=== PATIENT | male | born 1955 | race Caucasian/White ===

== ENCOUNTER → 2023-08-14 10:28 | Outpatient (REF) | payer MEDICARE, SELFPAY | LOC: RAD 10:28 | PROVIDERS: ATTENDING PHYSICIAN Family Medicine | DX: I82.621 Acute embolism and thrombosis of deep veins of right upper extremity (principal) | CPT/HCPCS: 93971 ==

== ENCOUNTER 2023-08-19 18:02 | Inpatient (IN) | payer MEDICARE, SELFPAY ==
[2023-08-19] VITALS (21 sets, daily range): BP systolic 136–176; BP diastolic 61–97; BMI 27.6
[2023-08-19] MEDS: PROTONIX IV 80 MG IV (14:27)
[2023-08-19] MEDS: SANDOSTATIN 50 MCG IV (14:32)
--- NOTE | 2023-08-19 14:35 | ED.GENMED ---
History of Present Illness
<Rosina Lara PA-C - Last Filed: 08/19/23 17:33>
General
Chief Complaint: Vomiting Blood
Source: patient
Exam Limitations: none
Time Seen by Provider: 08/19/23 14:25
Nursing documentation reviewed up to this point in time: agreed with
Travel History
Have you had any contact with someone who has COVID-19?: No
Do you have any symptoms of coronavirus? Fever > 100 degrees, chills, cough, shortness of breath, sore throat, loss of taste or smell, muscle aches, or headache?: No
History of Present Illness
History of Present Illness:
68-year-old male with past medical history of esophageal varices, alcohol use, DVT, hypertension, coming into the emergency department via EMS with concerns of vomiting blood. Patient states that last night, he started to feel queasy and some mild
upper abdominal pain. Patient states that this also around 12 AM today with 1 episode of vomiting blood. Patient states that he had around 3 other subsequent episodes this morning, 1 episode high-volume. Patient denies any chest pain, shortness
of breath, melena, rectal bleeding. Patient states that he drinks alcohol frequently but not daily. Patient states that he was 'drinking all weekend' and states that is why he is currently having bleeding. Patient denies history of duodenal
ulcers, gastric ulcers. Patient denies dizziness, lightheadedness.
Past History
<Rosina Lara PA-C - Last Filed: 08/19/23 17:33>
Past History
ED Past Medical History: CVA (Cerebral hemorrhage with stroke.), Valvular disease and Other (History of thrombocytopenia, history of GI bleeding)
ED Past Surgical History: Cardiac and Other (Noncontributory)
Social History
Tobacco: Non-smoker
Alcohol: None
Drug: None
Personal:
Living: with family
Employment: Employed
Family History
Family History: Other (Noncontributory)
Review of Systems
<Rosina Lara PA-C - Last Filed: 08/19/23 17:33>
Review of Systems
All Other Systems: ROS reviewed and negative except as documented in HPI and ROS
Phy Exam
<Rosina Lara PA-C - Last Filed: 08/19/23 17:33>
Physical Exam
Physical Exam:
Vitals: At this time, patient's vital signs are stable.
General: Slightly jaundiced. Patient appears ill, actively vomiting while assessing.
Skin: Small areas of scattered ecchymosis
Head: Normocephalic, atraumatic
Cardiac: Regular rate and rhythm, no murmurs
Peripheral Vascular: 2+ DP and PT pulses b/l.
Pulm: Increased respiratory rate, no wheezes, rales, rhonchi
Abdomen: Abdomen is distended. Some mild epigastric tenderness palpation.
Neuro: GCS 15. AAOx3. CN II-XII intact.
Scores
<Rosina Lara PA-C - Last Filed: 08/19/23 17:33>
GI Bleed
History of cardiac failure?: No
History of hepatic failure?: No
Pulse >100?: No
SBP <110?: No
Melena present?: No
Course
<Rosina Lara PA-C - Last Filed: 08/19/23 17:33>
Orders/Labs/Results
Orders:
Orders
08/19/23 Lunch
NPO
Allow oral meds: Yes
Allow clear liquids: No
08/19/23 14:17
Ondansetron Injectable [Zofran] 4 mg .ROUTE .STK-MED ONE
Pantoprazole [Protonix IV] 80 mg .ROUTE .STK-MED ONE
08/19/23 14:23
Electrocardiogram (*1) Urgent
Reason for Study: Abdominal Pain
08/19/23 14:24
EKG- Treatment ONCE
08/19/23 14:25
IV Insert/Care/Rem.- Treatment PRN
Pantoprazole [Protonix IV] 80 mg IV NOW STA
08/19/23 14:26
Type+Screen Urgent
CMP [Comprehensive Metabolic Panel] Urgent
Complete Blood Count/With Diff Urgent
Lipase Urgent
PT/INR [Prothrombin Time] Urgent
PTT Urgent
Comment: ADD ON
Octreotide [Sandostatin] 50 mcg IV NOW STA
Pantoprazole 80 mg/100 ml Nss [Protonix] 80 mg in 100 ml IV NOW
08/19/23 14:30
Ondansetron Injectable [Zofran] 8 mg IV NOW STA
08/19/23 14:34
Octreotide Acetate [Sandostatin] 600 mcg 0.9% Sodium Chloride 500 ml [Nss] 500 ml IV NOW
08/19/23 14:52
Add On- LAB Urgent
Tests Added?: PTT
08/19/23 Dinner
Clear Liquid
At Your Request: Full Participation
08/19/23 15:07
0.9% Sodium Chloride 250 ml [Nss] 250 ml IV BOLUS
08/19/23 15:35
BMP [Basic Metabolic Panel] Stat
08/19/23 15:36
Fentanyl Citrate/Pf [Sublimaze] 100 mcg .ROUTE .STK-MED ONE
Glycopyrrolate [Robinul] 0.2 mg .ROUTE .STK-MED ONE
Phenylephrine HCl/0.9% NaCl [Canelo-Synephrine] 1,000 mcg .ROUTE .STK-MED ONE
Phenylephrine [Canelo-Synephrine] 10 mg .ROUTE .STK-MED ONE
Rocuronium Abernathy [Rocuronium] 50 mg .ROUTE .STK-MED ONE
Sugammadex Sodium [Bridion] 200 mg .ROUTE .STK-MED ONE
08/19/23 15:37
NORepinephrine 4 MG/250 ML [Levophed] 4 mg in 250 ml .ROUTE .STK-MED
Propofol [Diprivan] 40 ml .ROUTE .STK-MED
08/19/23 15:42
Lidocaine 2% Mpf [Xylocaine Mpf 2%] 100 mg .ROUTE .STK-MED ONE
08/19/23 15:54
Succinylcholine Chloride [Succinylcholine] 200 mg .ROUTE .STK-MED ONE
08/19/23 16:02
Admit/Transfer Patient As Directed
Co-Sign Provider:
Level of Care: Inpatient admission
Assign to:: ICU
Physician / Group: Hospitalist
Diagnosis: Hemetemesis
Reason for Hospitalization: Hemetemesis
Expected length of stay greater than two midnights?: Yes
ELOS- Estimated Length of Stay in days: 2
I certify the patient meets the requirements for IP care: Yes
08/19/23 16:03
Code Status As Directed
Resuscitation Status: Full Code
08/19/23 16:07
Thiamine Injection 200 mg IV NOW STA
08/19/23 17:00
0.9% Sodium Chloride 1000 ml [Nss] 1,000 ml IV 75 mls/hr
0.9% Sodium Chloride [Nss (Preservative Free)] See Protocol IV PRN PRN
Lorazepam [Ativan] 1 mg IV Q1HPRN PRN
Lorazepam [Ativan] 1 mg PO Q2HPRN PRN
Lorazepam [Ativan] 2 mg IV Q1HPRN PRN
08/19/23 17:00
Case Management Consult Once
Case Management Consult: Other
Comment: Substance abuse counseling
DIETARY CONSULT Routine
Reason for Consult: Nutrition support, possible refeeding guidelines
GASTROINTESTINAL CONSULT Routine
Consulting Provider: Cecilio Bernard
Was physician already notified: Yes
Reason for consult: gib
Activity As Directed
Activity Level: Bedrest
INT (Intravenous Needle Therapy) As Directed
Comment: Place 2 IV catheters of the largest bore possible until stable
MSAS SCORE As Directed
MSAS Score 0-4: Repeat MSAS every 2 hours until 0-4 for three consecutive assessments, then every 4 hours x 48
hours.
MSAS Score 5-7: For MILD withdrawl symptoms. Repeat MSAS and RASS every 2 hours
MSAS Score 8-11: For MODERATE withdrawal symptoms. Repeat MSAS and RASS every 1 hour. Consider ICU or IMU
level of care.
MSAS Score > 11: For SEVERE withdrawal symptoms. Repeat MSAS and RASS every 1 hour. Notify provider, consider
ICU level of care.
MSAS Additional Instructions: If no improvement or no decrease in score from severe to moderate within 12
hours, consult psychiatry
MSAS Notify Provider: Notify provider if patient requires more than 10 mg of Lorazepam in eight hour period.
Orthostatic Vital Signs As Directed
Orthostatic VS Frequency: Now
Comment: then every four hours for twenty-four hours
Pneumatic Compression Sleeves As Directed
Type: Knee high
Vital Signs As Directed
Frequency: Per unit guidelines
DX Deep Vein Thrombosis Video Routine
08/19/23 17:09
Thiamine Injection 200 mg IV NOW STA
08/19/23 17:16
Alcohol Urgent
B-Hydroxybutyrate Urgent
GGTP Urgent
H&H Q6H
Magnesium Urgent
PTT Urgent
Phosphorus Urgent
08/19/23 17:50
Magnesium Sulfate 2 Gram/50 ml [Magnesium Sulfate] 2 gram in 50 ml IV NOW
08/19/23 17:52
Code Status As Directed
Resuscitation Status: Full Code
08/19/23 18:00
CefTRIAXone [Rocephin] 1,000 mg IV Q24H
Sps Sodium Polystyrene Sulfon [Kayexalate Suspension] 30 grams RECTAL NOW STA
Sterile Water [Sterile Water For Injection] 10 ml IV Q24H
08/19/23 18:25
Case Management Consult ONCE
Case Management Consult: Alcohol Withdrawl Risk
08/19/23 19:00
Flush (0.9% Sodium Chloride) [Flush (Nss)] See Dose Instructions IV PER PROTOCOL
08/19/23 19:06
Sodium Zirconium Cyclosilicate [Lokelma] 10 gram PO NOW STA
08/19/23 20:00
Lamotrigine [Lamictal] 150 mg PO BID
Thiamine Injection 200 mg IV BID
Thiamine Injection 200 mg IV BID
08/19/23 20:29
Potassium Stat
08/19/23 20:42
Urinalysis Routine
Date Specimen was Collected: 08/19/23
Time Specimen was Collected: 20:40
Urine Drug Abuse Screen Routine
Date Specimen was Collected: 08/19/23
Time Specimen was Collected: 20:41
Urine Microscopic Routine
Date Specimen was Collected: 08/19/23
Time Specimen was Collected: 20:40
08/19/23 22:00
Pravastatin Sodium [Pravachol] 80 mg PO HS
08/19/23 23:27
H&H Q6H
08/20/23 00:00
Pantoprazole 80 mg/100 ml Nss [Protonix] 80 mg in 100 ml IV Q10H
08/20/23 00:10
Amlodipine [Norvasc] 5 mg PO DAILY
Propranolol [Inderal] 40 mg PO BID
08/20/23 02:00
Octreotide Acetate [Sandostatin] 600 mcg 0.9% Sodium Chloride 500 ml [Nss] 500 ml IV Q12H
08/20/23 03:36
Complete Blood Count/No Diff IN AM
Comprehensive Metabolic Panel IN AM
Magnesium IN AM
Prothrombin Time IN AM
08/20/23 05:25
Magnesium Sulfate 2 Gram/50 ml [Magnesium Sulfate] 2 gram in 50 ml IV NOW
08/20/23 06:00
Chest X-ray Portable [CR Chest Portable - 1 View] IN AM
Comment:
Reason For Exam: ICU admit
Reason Study Needs to be Portable: Other
If Reason is Other, explain: ICU admit
08/20/23 08:00
FOLic ACID [Folvite] 1 mg PO DAILY
FOLic ACID [Folvite] 1 mg 0.9% Sodium Chloride 50 ml [Nss] 50 ml IV DAILYPRN
Lisinopril [Zestril] 40 mg PO DAILY
omega [id number] oil [Fish Oil] 1 cap PO DAILY
08/20/23 11:00
H&H Q6H
08/20/23 17:00
H&H Q6H
Abnormal Lab Results
08/19/23 08/19/23 08/19/23
14:26 15:35 17:16
WBC
RBC 3.71 L 10^6/uL
(4.70-6.10)
Hgb 11.0 L g/dL 10.5 L g/dL
(13.0-18.0) (13.0-18.0)
Hct 33.4 L % 32.8 L %
(39.0-52.0) (39.0-52.0)
MCHC 32.9 L g/dL
(33.0-37.0)
RDW 15.0 H %
(11.5-14.5)
Plt Count 128 L 10^3/uL
(130-400)
MPV 11.3 H fL
(7.4-10.4)
Abs Immat Gran (auto) 0.1 H 10^3/uL
(0-0.05)
Absolute Lymphs (auto) 0.9 L 10^3/uL
(1.2-3.4)
Immature Gran % 0.8 H %
(0-0.5)
Lymphocytes % 14.3 L %
(20.5-51.1)
Monocytes % 9.5 H %
(1.7-9.3)
PT 16.5 H Sec
(11.4-14.6)
Sodium 134 L mmol/L
(135-145)
Potassium 5.9 H mmol/L
(3.5-5.1)
Chloride 110 H mmol/L 108 H mmol/L
(98-107) (98-107)
Carbon Dioxide 18 L mmol/L 17 L mmol/L
(22-30) (22-30)
BUN 35 H mg/dl 37 H mg/dl
(9-20) (9-20)
Glucose 160 H mg/dl 156 H mg/dl
(70-99) (70-99)
Magnesium 1.3 L mg/dl
(1.6-2.3)
Total Bilirubin 1.9 H mg/dl
(0.2-1.3)
GGT 320 H U/L
(15-73)
AST 70 H U/L
(17-59)
Total Protein 8.4 H g/dl
(6.3-8.2)
Albumin
Urine Ketones
Urine Occult Blood
Urine RBC
Urine Bacteria
Urine Albumin
B-Hydroxybutyrate 0.93 H mmol/L
(0.02-0.27)
08/19/23 08/19/23 08/19/23
20:29 20:42 23:27
WBC
RBC
Hgb 9.3 L g/dL
(13.0-18.0)
Hct 27.9 L %
(39.0-52.0)
MCHC
RDW
Plt Count
MPV
Abs Immat Gran (auto)
Absolute Lymphs (auto)
Immature Gran %
Lymphocytes %
Monocytes %
PT
Sodium
Potassium 5.3 H mmol/L
(3.5-5.1)
Chloride
Carbon Dioxide
BUN
Glucose
Magnesium
Total Bilirubin
GGT
AST
Total Protein
Albumin
Urine Ketones Trace A
(Negative)
Urine Occult Blood Trace A
(Negative)
Urine RBC 3-6 A /HPF
(0-2)
Urine Bacteria Few A
(Negative)
Urine Albumin 1+ A
(Neg - Trace)
B-Hydroxybutyrate
08/20/23
03:36
WBC 4.6 L 10^3/uL
(4.8-10.8)
RBC 3.10 L 10^6/uL
(4.70-6.10)
Hgb 9.1 L g/dL
(13.0-18.0)
Hct 27.9 L %
(39.0-52.0)
MCHC 32.6 L g/dL
(33.0-37.0)
RDW 15.0 H %
(11.5-14.5)
Plt Count 81 L D 10^3/uL
(130-400)
MPV 10.9 H fL
(7.4-10.4)
Abs Immat Gran (auto)
Absolute Lymphs (auto)
Immature Gran %
Lymphocytes %
Monocytes %
PT 17.8 H Sec
(11.4-14.6)
Sodium
Potassium
Chloride 111 H mmol/L
(98-107)
Carbon Dioxide 20 L mmol/L
(22-30)
BUN 30 H mg/dl
(9-20)
Glucose 148 H mg/dl
(70-99)
Magnesium 1.5 L mg/dl
(1.6-2.3)
Total Bilirubin 1.5 H mg/dl
(0.2-1.3)
GGT
AST
Total Protein
Albumin 3.3 L g/dl
(3.5-5.0)
Urine Ketones
Urine Occult Blood
Urine RBC
Urine Bacteria
Urine Albumin
B-Hydroxybutyrate
08/20/23 03:36
Vital Signs
Initial and Last Documented VS:
Initial Vital Signs
Pulse Resp
81 27
08/19/23 14:18 08/19/23 14:18
Last Documented Vital Signs
Temp Pulse Resp BP Pulse Ox
98.0 F 61 16 159/75 95
08/20/23 03:52 08/20/23 06:00 08/20/23 06:00 08/20/23 06:00 08/20/23 06:00
<Jovi Kohler MD - Last Filed: 08/20/23 06:14>
Orders/Labs/Results
Orders:
Orders
08/19/23 Lunch
NPO
Allow oral meds: Yes
Allow clear liquids: No
08/19/23 14:17
Ondansetron Injectable [Zofran] 4 mg .ROUTE .STK-MED ONE
Pantoprazole [Protonix IV] 80 mg .ROUTE .STK-MED ONE
08/19/23 14:23
Electrocardiogram (*1) Urgent
Reason for Study: Abdominal Pain
08/19/23 14:24
EKG- Treatment ONCE
08/19/23 14:25
IV Insert/Care/Rem.- Treatment PRN
Pantoprazole [Protonix IV] 80 mg IV NOW STA
08/19/23 14:26
Type+Screen Urgent
CMP [Comprehensive Metabolic Panel] Urgent
Complete Blood Count/With Diff Urgent
Lipase Urgent
PT/INR [Prothrombin Time] Urgent
PTT Urgent
Comment: ADD ON
Octreotide [Sandostatin] 50 mcg IV NOW STA
Pantoprazole 80 mg/100 ml Nss [Protonix] 80 mg in 100 ml IV NOW
08/19/23 14:30
Ondansetron Injectable [Zofran] 8 mg IV NOW STA
08/19/23 14:34
Octreotide Acetate [Sandostatin] 600 mcg 0.9% Sodium Chloride 500 ml [Nss] 500 ml IV NOW
08/19/23 14:52
Add On- LAB Urgent
Tests Added?: PTT
08/19/23 Dinner
Clear Liquid
At Your Request: Full Participation
08/19/23 15:07
0.9% Sodium Chloride 250 ml [Nss] 250 ml IV BOLUS
08/19/23 15:35
BMP [Basic Metabolic Panel] Stat
08/19/23 15:36
Fentanyl Citrate/Pf [Sublimaze] 100 mcg .ROUTE .STK-MED ONE
Glycopyrrolate [Robinul] 0.2 mg .ROUTE .STK-MED ONE
Phenylephrine HCl/0.9% NaCl [Canelo-Synephrine] 1,000 mcg .ROUTE .STK-MED ONE
Phenylephrine [Canelo-Synephrine] 10 mg .ROUTE .STK-MED ONE
Rocuronium Abernathy [Rocuronium] 50 mg .ROUTE .STK-MED ONE
Sugammadex Sodium [Bridion] 200 mg .ROUTE .STK-MED ONE
08/19/23 15:37
NORepinephrine 4 MG/250 ML [Levophed] 4 mg in 250 ml .ROUTE .STK-MED
Propofol [Diprivan] 40 ml .ROUTE .STK-MED
08/19/23 15:42
Lidocaine 2% Mpf [Xylocaine Mpf 2%] 100 mg .ROUTE .STK-MED ONE
08/19/23 15:54
Succinylcholine Chloride [Succinylcholine] 200 mg .ROUTE .STK-MED ONE
08/19/23 16:02
Admit/Transfer Patient As Directed
Co-Sign Provider:
Level of Care: Inpatient admission
Assign to:: ICU
Physician / Group: Hospitalist
Diagnosis: Hemetemesis
Reason for Hospitalization: Hemetemesis
Expected length of stay greater than two midnights?: Yes
ELOS- Estimated Length of Stay in days: 2
I certify the patient meets the requirements for IP care: Yes
08/19/23 16:03
Code Status As Directed
Resuscitation Status: Full Code
08/19/23 16:07
Thiamine Injection 200 mg IV NOW STA
08/19/23 17:00
0.9% Sodium Chloride 1000 ml [Nss] 1,000 ml IV 75 mls/hr
0.9% Sodium Chloride [Nss (Preservative Free)] See Protocol IV PRN PRN
Lorazepam [Ativan] 1 mg IV Q1HPRN PRN
Lorazepam [Ativan] 1 mg PO Q2HPRN PRN
Lorazepam [Ativan] 2 mg IV Q1HPRN PRN
08/19/23 17:00
Case Management Consult Once
Case Management Consult: Other
Comment: Substance abuse counseling
DIETARY CONSULT Routine
Reason for Consult: Nutrition support, possible refeeding guidelines
GASTROINTESTINAL CONSULT Routine
Consulting Provider: Cecilio Bernard
Was physician already notified: Yes
Reason for consult: gib
Activity As Directed
Activity Level: Bedrest
INT (Intravenous Needle Therapy) As Directed
Comment: Place 2 IV catheters of the largest bore possible until stable
MSAS SCORE As Directed
MSAS Score 0-4: Repeat MSAS every 2 hours until 0-4 for three consecutive assessments, then every 4 hours x 48
hours.
MSAS Score 5-7: For MILD withdrawl symptoms. Repeat MSAS and RASS every 2 hours
MSAS Score 8-11: For MODERATE withdrawal symptoms. Repeat MSAS and RASS every 1 hour. Consider ICU or IMU
level of care.
MSAS Score > 11: For SEVERE withdrawal symptoms. Repeat MSAS and RASS every 1 hour. Notify provider, consider
ICU level of care.
MSAS Additional Instructions: If no improvement or no decrease in score from severe to moderate within 12
hours, consult psychiatry
MSAS Notify Provider: Notify provider if patient requires more than 10 mg of Lorazepam in eight hour period.
Orthostatic Vital Signs As Directed
Orthostatic VS Frequency: Now
Comment: then every four hours for twenty-four hours
Pneumatic Compression Sleeves As Directed
Type: Knee high
Vital Signs As Directed
Frequency: Per unit guidelines
DX Deep Vein Thrombosis Video Routine
08/19/23 17:09
Thiamine Injection 200 mg IV NOW STA
08/19/23 17:16
Alcohol Urgent
B-Hydroxybutyrate Urgent
GGTP Urgent
H&H Q6H
Magnesium Urgent
PTT Urgent
Phosphorus Urgent
08/19/23 17:50
Magnesium Sulfate 2 Gram/50 ml [Magnesium Sulfate] 2 gram in 50 ml IV NOW
08/19/23 17:52
Code Status As Directed
Resuscitation Status: Full Code
08/19/23 18:00
CefTRIAXone [Rocephin] 1,000 mg IV Q24H
Sps Sodium Polystyrene Sulfon [Kayexalate Suspension] 30 grams RECTAL NOW STA
Sterile Water [Sterile Water For Injection] 10 ml IV Q24H
08/19/23 18:25
Case Management Consult ONCE
Case Management Consult: Alcohol Withdrawl Risk
08/19/23 19:00
Flush (0.9% Sodium Chloride) [Flush (Nss)] See Dose Instructions IV PER PROTOCOL
08/19/23 19:06
Sodium Zirconium Cyclosilicate [Lokelma] 10 gram PO NOW STA
08/19/23 20:00
Lamotrigine [Lamictal] 150 mg PO BID
Thiamine Injection 200 mg IV BID
Thiamine Injection 200 mg IV BID
08/19/23 20:29
Potassium Stat
08/19/23 20:42
Urinalysis Routine
Date Specimen was Collected: 08/19/23
Time Specimen was Collected: 20:40
Urine Drug Abuse Screen Routine
Date Specimen was Collected: 08/19/23
Time Specimen was Collected: 20:41
Urine Microscopic Routine
Date Specimen was Collected: 08/19/23
Time Specimen was Collected: 20:40
08/19/23 22:00
Pravastatin Sodium [Pravachol] 80 mg PO HS
08/19/23 23:27
H&H Q6H
08/20/23 00:00
Pantoprazole 80 mg/100 ml Nss [Protonix] 80 mg in 100 ml IV Q10H
08/20/23 00:10
Amlodipine [Norvasc] 5 mg PO DAILY
Propranolol [Inderal] 40 mg PO BID
08/20/23 02:00
Octreotide Acetate [Sandostatin] 600 mcg 0.9% Sodium Chloride 500 ml [Nss] 500 ml IV Q12H
08/20/23 03:36
Complete Blood Count/No Diff IN AM
Comprehensive Metabolic Panel IN AM
Magnesium IN AM
Prothrombin Time IN AM
08/20/23 05:25
Magnesium Sulfate 2 Gram/50 ml [Magnesium Sulfate] 2 gram in 50 ml IV NOW
08/20/23 06:00
Chest X-ray Portable [CR Chest Portable - 1 View] IN AM
Comment:
Reason For Exam: ICU admit
Reason Study Needs to be Portable: Other
If Reason is Other, explain: ICU admit
08/20/23 08:00
FOLic ACID [Folvite] 1 mg PO DAILY
FOLic ACID [Folvite] 1 mg 0.9% Sodium Chloride 50 ml [Nss] 50 ml IV DAILYPRN
Lisinopril [Zestril] 40 mg PO DAILY
omega [id number]-gnh-fish oil [Fish Oil] 1 cap PO DAILY
08/20/23 11:00
H&H Q6H
08/20/23 17:00
H&H Q6H
Abnormal Lab Results
08/19/23 08/19/23 08/19/23
14:26 15:35 17:16
WBC
RBC 3.71 L 10^6/uL
(4.70-6.10)
Hgb 11.0 L g/dL 10.5 L g/dL
(13.0-18.0) (13.0-18.0)
Hct 33.4 L % 32.8 L %
(39.0-52.0) (39.0-52.0)
MCHC 32.9 L g/dL
(33.0-37.0)
RDW 15.0 H %
(11.5-14.5)
Plt Count 128 L 10^3/uL
(130-400)
MPV 11.3 H fL
(7.4-10.4)
Abs Immat Gran (auto) 0.1 H 10^3/uL
(0-0.05)
Absolute Lymphs (auto) 0.9 L 10^3/uL
(1.2-3.4)
Immature Gran % 0.8 H %
(0-0.5)
Lymphocytes % 14.3 L %
(20.5-51.1)
Monocytes % 9.5 H %
(1.7-9.3)
PT 16.5 H Sec
(11.4-14.6)
Sodium 134 L mmol/L
(135-145)
Potassium 5.9 H mmol/L
(3.5-5.1)
Chloride 110 H mmol/L 108 H mmol/L
(98-107) (98-107)
Carbon Dioxide 18 L mmol/L 17 L mmol/L
(22-30) (22-30)
BUN 35 H mg/dl 37 H mg/dl
(9-20) (9-20)
Glucose 160 H mg/dl 156 H mg/dl
(70-99) (70-99)
Magnesium 1.3 L mg/dl
(1.6-2.3)
Total Bilirubin 1.9 H mg/dl
(0.2-1.3)
GGT 320 H U/L
(15-73)
AST 70 H U/L
(17-59)
Total Protein 8.4 H g/dl
(6.3-8.2)
Albumin
Urine Ketones
Urine Occult Blood
Urine RBC
Urine Bacteria
Urine Albumin
B-Hydroxybutyrate 0.93 H mmol/L
(0.02-0.27)
08/19/23 08/19/23 08/19/23
20:29 20:42 23:27
WBC
RBC
Hgb 9.3 L g/dL
(13.0-18.0)
Hct 27.9 L %
(39.0-52.0)
MCHC
RDW
Plt Count
MPV
Abs Immat Gran (auto)
Absolute Lymphs (auto)
Immature Gran %
Lymphocytes %
Monocytes %
PT
Sodium
Potassium 5.3 H mmol/L
(3.5-5.1)
Chloride
Carbon Dioxide
BUN
Glucose
Magnesium
Total Bilirubin
GGT
AST
Total Protein
Albumin
Urine Ketones Trace A
(Negative)
Urine Occult Blood Trace A
(Negative)
Urine RBC 3-6 A /HPF
(0-2)
Urine Bacteria Few A
(Negative)
Urine Albumin 1+ A
(Neg - Trace)
B-Hydroxybutyrate
08/20/23
03:36
WBC 4.6 L 10^3/uL
(4.8-10.8)
RBC 3.10 L 10^6/uL
(4.70-6.10)
Hgb 9.1 L g/dL
(13.0-18.0)
Hct 27.9 L %
(39.0-52.0)
MCHC 32.6 L g/dL
(33.0-37.0)
RDW 15.0 H %
(11.5-14.5)
Plt Count 81 L D 10^3/uL
(130-400)
MPV 10.9 H fL
(7.4-10.4)
Abs Immat Gran (auto)
Absolute Lymphs (auto)
Immature Gran %
Lymphocytes %
Monocytes %
PT 17.8 H Sec
(11.4-14.6)
Sodium
Potassium
Chloride 111 H mmol/L
(98-107)
Carbon Dioxide 20 L mmol/L
(22-30)
BUN 30 H mg/dl
(9-20)
Glucose 148 H mg/dl
(70-99)
Magnesium 1.5 L mg/dl
(1.6-2.3)
Total Bilirubin 1.5 H mg/dl
(0.2-1.3)
GGT
AST
Total Protein
Albumin 3.3 L g/dl
(3.5-5.0)
Urine Ketones
Urine Occult Blood
Urine RBC
Urine Bacteria
Urine Albumin
B-Hydroxybutyrate
08/20/23 03:36
Vital Signs
Initial and Last Documented VS:
Initial Vital Signs
Pulse Resp
81 27
08/19/23 14:18 08/19/23 14:18
Last Documented Vital Signs
Temp Pulse Resp BP Pulse Ox
98.0 F 61 16 159/75 95
08/20/23 03:52 08/20/23 06:00 08/20/23 06:00 08/20/23 06:00 08/20/23 06:00
<Rosina Lara PA-C - Last Filed: 08/19/23 17:33>
MDM/Problems Addressed
Differential Diagnosis Includes:
Differentials include variceal bleed, [place] tear, gastric ulcer, duodenal ulcer, gastritis
MDM/Problems Addressed:
vomiting blood
Chronic conditions affecting care: HTN and Other (DVT, ascites, esophageal varices, alcohol abuse)
Acute Exacerbation and/or Progression of Chronic Illness: HTN and Other (DVT, ascites, esophageal varices, alcohol abuse)
<Rosina Lara PA-C - Last Filed: 08/19/23 17:33>
*Pulse Oximetry
Patient hypoxic: no
*Critical Care Note
Total Time (30-74mins, 75-104mins- exclusive of procedures): please see attending note
Data Reviewed
Review of Other/Old Records Reveals: Records (Reviewed ER physician documentation from 05/30/2023) and Discharge Summary (Reviewed discharge summary from 06/03/2023)
Source: patient
<Rosina Lara PA-C - Last Filed: 08/19/23 17:33>
Patient Management
Escalation/DeEscalation of care consider admission/obs:
68-year-old male with past medical history of esophageal varices, alcohol use, DVT, hypertension, coming into the emergency department via EMS with concerns of vomiting blood. Patient has had esophageal variceal bleeds repaired in the past.
Patient actively vomiting blood during my evaluation. H&H stable, vital signs stable, treated hide Protonix drip started. GI physician on-call immediately made aware, patient seen by GI physician during ER stay, patient accepted by ICU team.
Patient headed to GI lab now.
ED Attending Note
<Rosina Lara PA-C - Last Filed: 08/19/23 17:33>
-
Portions of this chart may have been created with voice recognition software.� Occasional wrong word or��sound alike� substitutions may have occurred due to the inherent limitations of voice recognition software.
<Jovi Kohler MD - Last Filed: 08/20/23 06:14>
ED Attending Note
Patient seen and examined by attending physician: Yes
ED Attending Note:
Patient with history of chronic alcoholism, status post banding secondary to esophageal variceal bleeding in May 2022, presents to emergency department secondary to recurrent, multiple vomiting episode with bright red blood. Patient is
complaining of burning sensation in his abdomen with nausea sensation at the time of evaluation ED. Patient has unfortunately continued to drink alcohol, including his last alcohol intake 2 days ago. Denies fever or chills. Denies dizziness or
weakness. Denies headache. Denies chest pain. Denies shortness of breath. Patient does take aspirin 81 mg daily.
Physical Exam
General: mild distress, not acutely ill. afebrile.
Head: nc/at. eomi
Neck: supple. no meningeal signs. Normal posterior pharynx
Heart: s1/s2 regular rate and rhythm, no murmur. equal radial pulses.
Lungs: no acute respiratory distress. clear bilaterally
Abdomen: normal bowel sounds. not tender.
Neuro: alert and oriented. no focal neurological deficits
Skin: no rash
Psychiatric: well kept. interactive and cooperative
Extremities: no edema. no calf tenderness.
Patient evaluated immediately upon arrival. Patient started on octreotide infusion as well as Protonix infusion.
H/H noted. Vital signs remain stable.
Blood transfusion consent on the chart. GI physician (Dr.Woo Bernard) notified via tigertext.
K: 5.9 noted without any acute EKG changes. IVF bolus given. Will repeat BMP.
Pt will be admitted to ICU for further evaluation and treatment.
Pt evaluated in ED by GI - will proceed to GI LAB for endoscopy
Critical care statement: A total of 40 minutes of critical care time was provided for this patient. This includes management of unstable vital signs, evaluation of the patient at bedside, reviewing the patient's pertinent medical records, discussion
with consultants, review of old EKGs and review of pertinent medical records. This time with separate from time utilized to perform the aforementioned documented procedures
Discharge Plan
-
Referrals:
Rasheeda Grubbs MD [Family Provider] -
Prescriptions:
No Action
lamotrigine 150 mg Tablet
150 mg PO BID
amlodipine 5 mg Tablet
5 mg PO DAILY
pravastatin 80 mg Tablet
80 mg PO HS
Co Q-10 300 mg Capsule
300 mg PO HS
propranolol 40 MG tablet
40 mg PO BID
lisinopril [Zestril] 40 mg tablet
40 mg PO DAILY
Prevagen
1 tab PO DAILY
pantoprazole 40 mg Tablet,Delayed Release (Dr/Ec)
40 mg PO DAILY 30 Days Qty: 30 0RF
aspirin 81 mg Tablet,Delayed Release (Dr/Ec)
81 mg PO HS
acetaminophen [Tylenol Extra Strength] 500 mg Tablet
1,000 mg PO DAILYPRN PRN (Reason: mild pain)
Centrum Silver Tablet
1 tab PO DAILY PRN (Reason: supplement)
omega 9-nbp-ojt-fish oil [Fish Oil] 1,000 mg (120 mg-180 mg) Capsule
1 cap PO DAILY
Glucosamine Chondroitin
1 tab PO BID
Patient Comments:
08/19/2023, per pt., 1200 mg of Glucosamine and unsure of Chondroitin strength.
lactulose 20 gram/30 mL solution
30 g PO .2-3 TIMES PER WEEK
Patient Comments:
08/19/2023, prescribed BID but pt. takes 2-3 times per week.
Discharge Date and Time
Print Language: SETSWANA
[2023-08-19 14:42] LABS: % Basophils 0.6 % (0-2); % Eosinophils 0.2 % (0-6); % Immature Granulocytes 0.8 % (0-0.5); % Lymphocytes 14.3 % (20.5-51.1); % Monocytes 9.5 % (1.7-9.3); % Neutrophils 74.6 % (42.2-75.2); Absolute Immature Granulocytes 0.1 10^3/uL (0-0.05); Absolute Lymphocytes 0.9 10^3/uL (1.2-3.4); Absolute Monocytes 0.6 10^3/uL (0.1-0.6); Absolute Neutrophils 4.7 10^3/uL (1.4-6.5); Hematocrit 33.4 % (39.0-52.0); Mean Corp Hgb Conc. 32.9 g/dL (33.0-37.0); Mean Corpuscular Hgb 29.6 pg (27.0-31.0); Mean Platelet Volume 11.3 fL (7.4-10.4); Nucleated Red Blood Cells % 0 % (-); Platelet Count 128 10^3/uL (130-400); Red Blood Cell Count 3.71 10^6/uL (4.70-6.10); White Blood Cell Count 6.3 10^3/uL (4.8-10.8)
[2023-08-19] MEDS: ZOFRAN 8 MG IV (14:43)
[2023-08-19] MEDS: PROTONIX 100 IV ×2 (14:43→21:53)
[2023-08-19 14:48] LABS: INR 1.35; PT 16.5 Sec (11.4-14.6)
[2023-08-19 14:51] LABS: ALT (SGPT) 31 U/L (0-50); AST (SGOT) 70 U/L (17-59); Albumin 4.3 g/dl (3.5-5.0); Alkaline Phosphatase 77 U/L (38-126); Blood Urea Nitrogen 35 mg/dl (9-20); Calcium 10.1 mg/dl (8.4-10.2); Carbon Dioxide 18 mmol/L (22-30); Chloride 110 mmol/L (98-107); Glucose 160 mg/dl (70-99); Lipase 267 U/L (23-300); Potassium 5.9 mmol/L (3.5-5.1); Sodium 135 mmol/L (135-145); Total Bilirubin 1.9 mg/dl (0.2-1.3); Total Protein 8.4 g/dl (6.3-8.2); eGFR > 60.00
--- NOTE | 2023-08-19 14:56 | CON.GI ---
Addendum entered and electronically signed by Cecilio Bernard MD 08/19/23 16:06:
I saw and examined the patient.
The PA's note was reviewed and I agree with the note.
Comment:
Pt is a 68 year old male with h/o alcohol induced cirrhosis, EV s/p EVL in 05/2023, portal Hypertensive gastropathy, severe s/p TAVR, CVA who p/w hematemesis x 5 today. Had similar episode in 05/2023 with EGD noted grade I varices with banding and
portal HTN gastropathy.� He had 3 episodes of hematemesis prior to admission including large volume of red blood and then had 2 more episodes of hematemesis in ER. �Denies abdo pain. No NSAIDs.� Hbg on admission was 11, BUN 35 on.
Impression / Rec:
1. Hematemesis - likely recurrent variceal hemorrhage. Had episode of variceal hemorrhage which required EVL in 05/2023. He stopped drinking for sometime afterwards but relapsed back. Hemodynamically stable, not tachycardic but on propranolol.
Hgb on admission is 11 which is higher than previous, however given multiple episodes of hematemesis, will elect for EGD today. Started on octreo gtt and protonix gtt. Keep NPO.
Original Note:
Consultation
-
Date/Time Consultation Requested: 08/19/23 1430
Date/Time Consultation Performed: 08/19/23 1500
Requesting Provider: Kelli Kohler MD
Performing Provider: RODNEY Osuna, Cecilio Bernard MD
Reason for Consultation: GI bleed
Medical History
Chief Complaint / HPI
Chief Complaint: hematemesis
History of Present Illness:
Pt is a 68yo with hx cirrhosis, EV, portal Hypertensive gastropathy, severe s/p TAVR, CVA presents with recurrent episode of vomiting blood. Pt with recent admission in May with EGD noted grade I varices with banding and portal HTN
gastropathy. In reviewing with patient he started with vomiting blood 08/18 AM with 3 episodes prior to admission including large volume of red blood then 2 further episode of 100ml+ each in ER prior to GI eval. NO NASAID or anticoagulation use.
Pt admits to hx chronic ETOH abuse. He quit in May but restarted drinking several days ago. Pt also admits to large dark stool this am. he denies dizziness, dysphagia, GERD, abdominal pain or constipation.
Past Medical History
Past Medical History: CVA (hemorrhagic), HTN, Hypercholesterolemia, Seizures, Valvular Disease (severe ) and Other ((ETOH cirrhosis with portal Hypertensive gastropathy, EV with prior banding last in May 2023, paracentesis years ago,
steatosis, herniated disc with chronic back pain, thrombocytopenia, GI bleed)
Past Surgical History: Cardiac (TAVR 08/2022), Cholecystectomy, Orthopedic (disc surgery) and Other (nguinal hernia repairs 2001 and 1969)
Social History
Tobacco: Former Smoker
Alcohol: Daily (admits to quitting then restarted wine daily several days ago)
Drug: None
Personal:
Living: With Family
Employment: Retired
Family History
Family History: Other (father with hx polyps no family hx liver disease )
Allergies / Home Medications
Allergy/AdvReac Type Severity Reaction Status Date / Time
ezetimibe [From Zetia] Allergy Rash Verified 05/30/23 02:09
Medication Instructions Recorded
acetaminophen 500 mg capsule 1,000 mg PO DAILYPRN PRN mild pain 07/01/22
amlodipine 5 mg tablet 5 mg PO DAILY Blood pressure 07/01/22
coenzyme Q10 300 mg capsule (Co 300 mg PO DAILY Supplement 07/01/22
Q-10)
glucosamine-chondroitin 750 mg-600 2 tab PO BID Supplement 07/01/22
mg tablet
lamotrigine 150 mg tablet 150 mg PO BID Mental Health/Anxiety 07/01/22
pravastatin 80 mg tablet 80 mg PO DAILY High cholesterol 07/01/22
propranolol 40 mg tablet 40 mg PO BID Blood pressure 07/01/22
lisinopril 40 mg tablet (Zestril) 40 mg PO DAILY Blood pressure 07/02/22
Prevagen 1 tab PO DAILY Supplement 07/23/22
omega 1-fqh-ydu-fish oil 900 1,400 cap PO BID Supplement 07/23/22
mg-1,400 mg capsule,delayed
release (Fish Oil)
multivitamin 1 tab PO DAILY Supplement 08/21/22
aspirin 81 mg chewable tablet 81 mg PO DAILY Blood Clot 04/18/23
Prevention/Tx
lactulose 20 gram/30 mL oral 20 g (30 mL) PO BID 30 days #1,800 06/03/23
solution mL
pantoprazole 40 mg tablet,delayed 40 mg PO DAILY 30 days #30 tabs 06/03/23
release
Review of Systems
-
History Source: Patient and Family
Constitutional: Reports Chills
EENT: Reports No Symptoms
Respiratory: Reports No Symptoms
Cardiac: Reports No Symptoms
Abdomen/GI: Reports Nausea and Vomiting (hematemesis )
: Reports No Symptoms
Musculoskeletal: Reports No Symptoms
Skin: Reports No Symptoms
Neurological: Reports Weakness
Endocrine: Reports No Symptoms
Hematologic/Lymphatic: Reports Bleeding
Vital Signs
Temp Pulse Resp BP
98.5 F 60 13 167/68
08/19/23 14:19 08/19/23 14:45 08/19/23 14:45 08/19/23 14:35
Physical Exam
Exam
General: Well Developed, Well Nourished and Other (slight tremorous )
HEENT: Anicteric
Respiratory: Clear
Cardiac: Regular Rhythm (slight bradicardia )
GI: Soft, Non Tender, Distended and Other (emesis red/dark red about 100 + ML)
Rectal: Other (rectal exam in ER grossly bloody )
Musculoskeletal: No Clubbing and No Cyanosis
Skin: Warm and Dry
Neuro: Awake, Alert and Other (no asterixis)
Psych: Calm
Results
WBC 6.3 10^3/uL (4.8-10.8) 08/19/23 14:
Hgb 11.0 g/dL (13.0-18.0) L 08/19/23 14:
Hct 33.4 % (39.0-52.0) L 08/19/23 14:
MCV 90.0 fL (80.0-94.0) 08/19/23 14:
Plt Count 128 10^3/uL (130-400) L 08/19/23 14:
Absolute Neuts (auto) 4.7 10^3/uL (1.4-6.5) 08/19/23 14:
PT 16.5 Sec (11.4-14.6) H 08/19/23 14:
INR 1.35 08/19/23 14:
Sodium 135 mmol/L (135-145) 08/19/23 14:
Potassium 5.9 mmol/L (3.5-5.1) H 08/19/23 14:
Chloride 110 mmol/L (98-107) H 08/19/23 14:
Carbon Dioxide 18 mmol/L (22-30) L 08/19/23 14:
BUN 35 mg/dl (9-20) H 08/19/23 14:
Creatinine 1.0 mg/dL (0.7-1.3) 08/19/23 14:
Calcium 10.1 mg/dl (8.4-10.2) 08/19/23 14:
Total Bilirubin 1.9 mg/dl (0.2-1.3) H 08/19/23 14:
AST 70 U/L (17-59) H 08/19/23 14:
ALT 31 U/L (0-50) 08/19/23 14:
Alkaline Phosphatase 77 U/L (38-126) 08/19/23 14:
Lipase 267 U/L (23-300) 08/19/23 14:26
Diagnostic Image Results:
03/2023 US doppler
�Main portal vein is patent, with hepatofugal flow.
Hepatic veins are visualized and are patent, although of small caliber with biphasic waveforms, findings most likely on the basis of cirrhosis.
Note is made of a recannulized paraumbilical vein.
Status post cholecystectomy with no evidence for biliary ductal dilation.
Nodular contour of the liver compatible with cirrhosis. Increased echogenicity of the liver compatible with cirrhosis and/or fatty infiltration. No sonographic evidence for a focal hepatic mass lesion.
The spleen has maximum dimension of 11.6 cm, with top normal considered 13 cm.
No significant ascites is identified.
Note is made of a right pleural effusion.
Prior GI Procedures:
� � � � � � � � � � � � � � � � � � � � � � � � � �
EGD 05/2023 parra � � � - Grade I esophageal varices. Completely eradicated Banded - Scar in the lower third of the esophagus. - Portal hypertensive gastropathy - A medium amount of white chalky material in the stomach. - Normal examined duodenum -
No specimens collected.
EGD: hang � - Grade I esophageal varices, small seen below scar line from prior banding.- Non-bleeding gastric ulcers with no stigmata of bleeding. portal HTN gastropathy, normal duodenum.
Colonoscopy:� 06/2016- diverticulosis, 3 mm polyp DC, bx hyperplastic colonic mucosa.
Assessment / Plan
-
Pt is a 68yo with hx cirrhosis, EV, portal Hypertensive gastropathy, severe s/p TAVR, CVA presents with recurrent episode of vomiting blood. Pt with recent admission in May with EGD noted grade I varices with banding and portal HTN
gastropathy. In reviewing with patient he started with vomiting blood 08/18 AM with 3 episodes prior to admission including large volume of red blood then 2 further episode of 100ml+ each in ER prior to GI eval. NO NASAID or anticoagulation use.
hbg 11 and BUN 35 on admission
� � � � � � � � � � � � � � � � � � � � � � � �
IMPRESSION
recurrent UGIB
hx esophageal varices with banding 05/30/23
hx ETOH cirrhosis with decompensation and current ETOH use (MELD 3.0 13 on admission)
anemia
EtOH cirrhosis
thrombocytopenia
hyperkalemia
other medical problems:
with prior TAVR
hx hemorrhagic CVA
-hx gastric ulcer
-hx with TAVR in 08/2022
-GERD on daily PPI
-seizure disorder
-hemorrhagic CVA
-hx ascites/paracentesis several years ago
PLAN:
etiology of bleeding with concern for recurrent variceal bleed, portal HTN vs other
plan for repeat BMP now to eval K to see if can proceed with EGD now
cont PPI and octreotide gtt
add IV ceftriaxone daily
NPO
large bore IV
trend hbg- do not overtransfuse
last US03/2023 /AFP 05/2023- 3.16
folate and thiamine replacement
Propranolol as tolerated
currently awake and alert-- monitor for enceophalopathy with bleeding and ETOH withdrawal
stressed need for patient to quit all ETOH
will follow��
-
-
Thank you for consultation and allowing me to participate in the patient's care. Please call the non emergency services ambulance driver GI physician during the after hours with any questions or concerns.
[2023-08-19] MEDS: SANDOSTATIN 500.600000000000023 MCG IV (15:03)
[2023-08-19] MEDS: NSS 250 IV (15:14)
[2023-08-19 15:25] LABS: APTT 30.5 Sec (23.4-35.0)
--- NOTE | 2023-08-19 15:30 | HPS.HSE ---
Family Physician
-
Family Physician: Rasheeda Grubbs MD
Chief Complaint
-
Vomiting blood
History of Present Illness
68-year-old male presented to hospital with hematemesis. He also felt some dizziness at home manage mild discomfort in the abdomen. About 4 episodes of vomiting at home.
Medical History
Past Medical History
Past Medical History: Reports Other
Additional Past Medical History:
Seizures, stroke, history of cerebral hemorrhage, history of DVT, hypertension, hyperlipidemia, ascites, esophageal varices, anemia, thrombocytopenia, alcohol abuse
Past Surgical History: Reports Other
Additional Past Surgical History:
Cholecystectomy, left inguinal hernia repair, right inguinal hernia repair, hemorrhoidectomy, esophageal varices banding, laser procedure for the low back, aortic valve replacement
Social History
Tobacco: Former Smoker
Alcohol: Occasional
Living: With Family
Employment: Retired
Family History
Family History: Not pertinent
Allergies / Home Medications
Allergies reflects when Allergies were last updated in [facility].
Home Medications with original date entered in [facility]
Allergy/Medication List:
Allergies
Allergy/AdvReac Type Severity Reaction Status Date / Time
ezetimibe [From Zetia] Allergy Rash Verified 05/30/23 02:09
Home Medications
amlodipine 5 mg tablet 5 mg PO DAILY Blood pressure 07/01/22
coenzyme Q10 300 mg capsule (Co Q-10) 300 mg PO HS Supplement 07/01/22
lamotrigine 150 mg tablet 150 mg PO BID Mental Health/Anxiety 07/01/22
pravastatin 80 mg tablet 80 mg PO HS High cholesterol 07/01/22
propranolol 40 mg tablet 40 mg PO BID Blood pressure 07/01/22
lisinopril 40 mg tablet (Zestril) 40 mg PO DAILY Blood pressure 07/02/22
Prevagen 1 tab PO DAILY Supplement 07/23/22
pantoprazole 40 mg tablet,delayed release 40 mg PO DAILY 30 days #30 tabs 06/03/23
Glucosamine Chondroitin 1 tab PO BID 08/19/23
acetaminophen 500 mg tablet (Tylenol Extra Strength) 1,000 mg PO DAILYPRN PRN mild pain 08/19/23
aspirin 81 mg tablet,delayed release 81 mg PO HS 08/19/23
lactulose 20 gram/30 mL oral solution 30 g PO .2-3 TIMES PER WEEK 08/19/23
iehkgnrbfmoy-wokujszo-viqfuc tablet 1 tab PO DAILY PRN supplement 08/19/23
omega 8-kqp-nqq-fish oil 1,000 mg (120 mg-180 mg) capsule (Fish Oil) 1 cap PO DAILY 08/19/23
Review of Systems
-
A 12 point ROS was completed and negative except as noted: Yes
Respiratory: Denies Trouble Breathing
Cardiac: Denies Chest Pain
Abdomen/GI: Reports Nausea and Vomiting; Denies Abdominal Pain, Diarrhea or Bloody Stools
Neurological: Reports Dizzy
Physical Exam
Vital Signs
Vital Signs
Temp Pulse Resp BP
98.5 F 60 13 167/68
08/19/23 14:19 08/19/23 14:45 08/19/23 14:45 08/19/23 14:35
Physical Exam
General: Other (nausea)
Respiratory: Clear
Cardiac: S1/S2 and Regular Rhythm
GI: Non Tender and Normal Bowel Sounds
Neuro: AO x 3 and Nonfocal/grossly intact
Laboratory Results
-
08/19/23 14:26
Laboratory Results
PT 16.5 Sec (11.4-14.6) H 08/19/23 14:26
INR 1.35 08/19/23 14:26
APTT 30.5 Sec (23.4-35.0) 08/19/23 14:26
Total Bilirubin 1.9 mg/dl (0.2-1.3) H 08/19/23 14:26
AST 70 U/L (17-59) H 08/19/23 14:26
ALT 31 U/L (0-50) 08/19/23 14:26
Alkaline Phosphatase 77 U/L (38-126) 08/19/23 14:26
Lipase 267 U/L (23-300) 08/19/23 14:26
Impression/Plan
-
IMPRESSION/PLAN:
# Hematemesis-admit to ICU
Keep n.p.o. follow hemoglobin
Type and screen
Transfuse If needed-blood consent already obtained by ER
IV fluids
PPI drip and octreotide drip
GI consultation
EGD
# Alcohol abuse and alcohol liver disease
Portal hypertensive gastropathy
Continue propranolol when able to take p.o
restart lactulose when able to take p.o.
MS[facility] protocol
IV thiamine
# Hyperkalemia-repeat labs pending
Kayexalate rectal
# Hypertension-restart amlodipine, lisinopril and beta-blockers when able to take p.o.
# History of CVA-hold aspirin. Restart when okay with GI
Continue pravastatin when able to take p.o.
# History of TAVR for severe aortic stenosis
# Hypertension-continue beta-blockers when able to take p.o.
# Hyperlipidemia-continue pravastatin when able to take p.o.
# Seizures-likely secondary to alcohol use
Continue Lamictal-patient states that he took a dose this morning
# Thrombocytopenia-likely secondary to alcohol use
# History of DVT
# SCDs for DVT prophylaxis
# CODE STATUS-full code
Discussed with ER attending and nursing
CC time 38 min
[2023-08-19 16:06] LABS: Blood Urea Nitrogen 37 mg/dl (9-20); Calcium 9.6 mg/dl (8.4-10.2); Carbon Dioxide 17 mmol/L (22-30); Chloride 108 mmol/L (98-107); Glucose 156 mg/dl (70-99); Sodium 134 mmol/L (135-145); eGFR > 60.00
[2023-08-19] MEDS: NSS 1000 IV (17:19)
[2023-08-19] MEDS: THIAMINE INJECTION 200 MG IV ×2 (17:19→19:21)
[2023-08-19 17:28] LABS: Hematocrit 32.8 % (39.0-52.0); Hemoglobin 10.5 g/dL (13.0-18.0)
[2023-08-19 17:37] LABS: GGTP 320 U/L (15-73); Magnesium 1.3 mg/dl (1.6-2.3); Phosphorus 3.6 mg/dl (2.5-4.5)
[2023-08-19 17:39] LABS: APTT 31.5 Sec (23.4-35.0)
[2023-08-19 17:44] LABS: B-Hydroxybutyrate 0.93 mmol/L (0.02-0.27)
[2023-08-19 17:49] LABS: Alcohol None Detected
--- NOTE | 2023-08-19 18:13 | PTCARENOTE ---
Received patient to room 3359. Patient is AAOx4, somnolent. Patient is sinus rhythm on monitor, 97% on room air. Patient was able to move himself over from stretcher to bed. MSAS to follow, will verify transfer orders. oriented to room, call
beauchamp within reach, bed alarm on.
[2023-08-19] MEDS: STERILE WATER FOR INJECTION 10 ML IV (18:46)
[2023-08-19] MEDS: ROCEPHIN 1000 MG IV (18:46)
[2023-08-19] MEDS: MAGNESIUM SULFATE 50 IV (18:47)
--- NOTE | 2023-08-19 19:00 | PTCARENOTE ---
Received patient at 1900. Pt. currently in bed. Awake and oriented. Denies pain/discomfort currently. Afebrile. Heart rhythm sinus. Currently on room air. Clear liquid diet ordered. No signs of bleeding or vomiting at this time. Pt. voiding in
urinal without issue. Skin as documented. Lokelma given for high potassium. Will recheck potassium. Also trending hemoglobin. Discussed plan of care with patient. Vital signs stable at this time.
[2023-08-19] MEDS: LAMICTAL 150 MG PO (19:20)
[2023-08-19] MEDS: LOKELMA 10 GRAM PO (19:20)
[2023-08-19] MEDS: PRAVACHOL 80 MG PO (20:10)
[2023-08-19] MEDS: ATIVAN 1 MG PO (20:10)
[2023-08-19 20:46] LABS: Potassium 5.3 mmol/L (3.5-5.1)
[2023-08-19 20:53] LABS: Urine Albumin 1+ (Neg - Trace); Urine Bilirubin Negative (Negative); Urine Character Clear (Clear); Urine Color Yellow; Urine Glucose Negative (Negative); Urine Ketone Trace (Negative); Urine Leukocyte Negative (Negative); Urine Nitrite Negative (Negative); Urine Occult Blood Trace (Negative); Urine Specific Gravity 1.015 (<1.030); Urine Urobilinogen Negative (Neg - 1+)
[2023-08-19 21:05] LABS: Amphetamines Negative (Negative); Barbiturates Negative (Negative); Benzodiazepines Negative (Negative); Buprenorphine Negative (Negative); Cocaine Negative (Negative); Marijuana Negative (Negative); Methadone Negative (Negative); Methamphetamines Negative (Negative); Opiates Negative (Negative); Phencyclidine Negative (Negative); Tricyclic Antidepressants Negative (Negative)
[2023-08-19 21:13] LABS: Urine Squamous Cell 0-2 /LPF (Few)
[2023-08-19 21:14] LABS: Urine Bacteria Few (Negative); Urine White Cell 0-2 /HPF (0-5)
[2023-08-19 21:16] LABS: Urine Hyaline Cast 0-2 /LPF (0-2)
[2023-08-19 23:33] LABS: Hematocrit 27.9 % (39.0-52.0); Hemoglobin 9.3 g/dL (13.0-18.0)
[2023-08-20] VITALS (16 sets, daily range): BP systolic 132–176; BP diastolic 69–101; PULSE 57–67; BMI 28.0
[2023-08-20] MEDS: INDERAL 40 MG PO ×3 (00:27→22:01)
[2023-08-20] MEDS: NORVASC 5 MG PO ×2 (00:28→07:17)
--- NOTE | 2023-08-20 00:30 | PTCARENOTE ---
Pt. has no signs of vomiting or bleedings so far during shift. Also currently denies nausea. Denies pain or discomfort. Pt. experiencing hypertension. Spoke with RODNEY regarding hypertension. WRITER EDITOR restarted BP meds that patient normally takes at
home. PO Propranolol and Norvasc given. Will continue to monitor BP.
[2023-08-20] MEDS: SANDOSTATIN 500.600000000000023 MCG IV (00:46)
--- NOTE | 2023-08-20 03:28 | DOWNTIME ---
There was a [employer] Client [employer] Relations Specialist Downtime on 08/20/2023 from 0100 to 08/20/2023 at 0322. Downtime documentation of patient's care, including medication administrations, has been reconciled in the electronic record per guidelines. Refer to the
patient's paper chart under the miscellaneous tab to see printed paper medication records and downtime forms.
--- NOTE | 2023-08-20 03:45 | PTCARENOTE ---
Pt. BP slightly improved. AM labs drawn. Vital signs stable at this time.
[2023-08-20 04:01] LABS: Hematocrit 27.9 % (39.0-52.0); Hemoglobin 9.1 g/dL (13.0-18.0); Mean Corp Hgb Conc. 32.6 g/dL (33.0-37.0); Mean Corpuscular Hgb 29.4 pg (27.0-31.0); Mean Platelet Volume 10.9 fL (7.4-10.4); Platelet Count 81 10^3/uL (130-400); White Blood Cell Count 4.6 10^3/uL (4.8-10.8)
[2023-08-20 04:04] LABS: INR 1.48; PT 17.8 Sec (11.4-14.6)
[2023-08-20 04:12] LABS: ALT (SGPT) 25 U/L (0-50); AST (SGOT) 53 U/L (17-59); Albumin 3.3 g/dl (3.5-5.0); Alkaline Phosphatase 62 U/L (38-126); Blood Urea Nitrogen 30 mg/dl (9-20); Calcium 8.7 mg/dl (8.4-10.2); Carbon Dioxide 20 mmol/L (22-30); Chloride 111 mmol/L (98-107); Estimated Creatinine Clearance 94 ml/min; Glucose 148 mg/dl (70-99); Magnesium 1.5 mg/dl (1.6-2.3); Sodium 135 mmol/L (135-145); Total Bilirubin 1.5 mg/dl (0.2-1.3); Total Protein 6.9 g/dl (6.3-8.2); eGFR > 60.00
[2023-08-20] MEDS: MAGNESIUM SULFATE 50 IV (05:46)
[2023-08-20] MEDS: FOLVITE 1 MG PO (07:17)
[2023-08-20] MEDS: ZESTRIL 40 MG PO (07:17)
[2023-08-20] MEDS: THIAMINE INJECTION 200 MG IV ×2 (07:18→22:04)
[2023-08-20] MEDS: LAMICTAL 150 MG PO ×2 (07:18→22:01)
--- NOTE | 2023-08-20 07:48 | PTCARENOTE ---
Patient received from awake overnight monitor RN. Pt AAOx3, reports no discomfort at this time. Request to advance diet as he is 'starving'. RN informed patient he can let the MD know this with morning rounds. Patient given morning Meds, BP slightly elevated.
Patient report no MEJIA/Dizziness/CP/PALP at this time. Patient placed order for breakfast, patient informed he will be assisted OOB to chair when his breakfast arrives.
--- NOTE | 2023-08-20 08:40 | CON.INTV ---
Consultation
Consultation Request
Date/Time Consultation Requested: 08/20/2023
Date/Time Consultation Performed: 08/20/2023 - 829
Requesting Provider: Dr. Farnsworth
Performing Provider: Dr. Armijo
Reason for Consultation: GI bleed
Medical History
-
Chief Complaint: Vomited blood
History of Present Illness:
68-year-old male with a past medical history of hepatic cirrhosis with history of EV and portal hypertensive gastropathy, alcohol abuse, aortic stenosis s/p TAVR, history of stroke, hypertension, HLD and history of DVT who presents with vomiting
blood. The evening prior to arrival he began feeling queasy with mild upper abdominal pain. At around midnight he vomited blood and had 3 additional episodes the next morning. He is a chronic alcoholic but had been in remission from [place] until this past weekend when he drank about 1.75 L of wine per day. He was started on Protonix in the ER and octreotide. He was also given fluids with NS 0.9% with a 250 mL bolus. Labs showed Hb 11, platelets 128, sodium 134, potassium 5.9,
serum bicarb level 18, BUN 35, total bilirubin 1.9, AST 70. He was afebrile to 90 �F, pulse rate 61, breathing 16 breaths/min, BP 159/75 and SpO2 95% on room air. The ER physician notified gastroenterology and patient was admitted to the ICU for
further management with plans for endoscopy. Patient underwent EGD yesterday on 08/19/2023 showing small esophageal varices with no stigmata of hemorrhage. Empirical EVL was performed with 2 bands placed with complete eradication and deflation of
varices. There was no endoscopic evidence of varices in the cardia. There was moderate portal hypertensive gastropathy with friable mucosa with mild oozing of blood on contact which was likely the source of bleeding. The duodenal bulb,
first-second parts of the duodenum were normal. Hot Press Operator service is now consulted for additional management/recommendations.
When I saw the patient this morning he was tolerating his clear liquid diet with no abdominal pain, nausea or vomiting. He says that he did vomit up his lactulose because it tasted 'nasty.' He currently feels well and is eager to go home. He
denies headache, chest pain, shortness of breath, abdominal pain, nausea, fevers or chills.
PMHx: Hepatic cirrhosis with history of esophageal varices and portal hypertensive gastropathy, severe s/p TAVR, history of CVA, hypertension, hyperlipidemia, seizure disorder, history of DVT, anemia, alcohol abuse
PSHx: Cholecystectomy, left inguinal hernia repair, right inguinal hernia repair, hemorrhoidectomy, esophageal varices banding, laser procedure for lower back, aortic valve replacement
Past Medical History
Past Medical History: Other (above as per HPI)
Past Surgical History: Other (above as per HPI)
Social History
Tobacco: Former Smoker
Alcohol: Occasional
Drug: None
Living: With Family
Employment: Retired
Family History
Family History: Reviewed & Not Pertinent
Allergies / Home Medications
Allergies
Allergy/AdvReac Type Severity Reaction Status Date / Time
ezetimibe [From Zetia] Allergy Rash Verified 05/30/23 02:09
Home Medications
�Medication �Instructions �Recorded �Confirmed �Last Taken �Type
amlodipine 5 mg tablet 5 mg PO DAILY Blood pressure 07/01/22 08/19/23 08/18/23 History
coenzyme Q10 300 mg capsule (Co 300 mg PO HS Supplement 07/01/22 08/19/23 04/17/23 History
Q-10)
lamotrigine 150 mg tablet 150 mg PO BID Mental Health/Anxiety 07/01/22 08/19/23 08/18/23 History
pravastatin 80 mg tablet 80 mg PO HS High cholesterol 07/01/22 08/19/23 08/18/23 History
propranolol 40 mg tablet 40 mg PO BID Blood pressure 07/01/22 08/19/23 08/18/23 History
lisinopril 40 mg tablet (Zestril) 40 mg PO DAILY Blood pressure 07/02/22 08/19/23 08/18/23 History
Prevagen 1 tab PO DAILY Supplement 07/23/22 08/19/23 08/18/23 History
pantoprazole 40 mg tablet,delayed 40 mg PO DAILY 30 days #30 tabs 06/03/23 08/19/23 08/18/23 Rx
release
Glucosamine Chondroitin 1 tab PO BID 08/19/23 08/19/23 08/18/23 History
acetaminophen 500 mg tablet 1,000 mg PO DAILYPRN PRN mild pain 08/19/23 08/19/23 2 Days Ago History
(Tylenol Extra Strength) ~08/17/23
aspirin 81 mg tablet,delayed 81 mg PO HS 08/19/23 08/19/23 08/18/23 History
release
lactulose 20 gram/30 mL oral 30 g PO .2-3 TIMES PER WEEK 08/19/23 08/19/23 3 Days Ago History
solution ~08/16/23
ivjjzwwchqzk-lbdzqpjv-kdptte tablet 1 tab PO DAILY PRN supplement 08/19/23 08/19/23 1 Week Ago History
~08/12/23
omega 0-ead-zwx-fish oil 1,000 mg 1 cap PO DAILY 08/19/23 08/19/23 08/18/23 History
(120 mg-180 mg) capsule (Fish Oil)
Review of Systems
-
History Source: Patient
All other systems: Negative unless noted (12 point ROS performed and is negative unless mentioned above.)
Vitals / Labs / Diagnostic Testing
Vital Signs
Temp Pulse Resp BP Pulse Ox
98.3 F 58 16 138/75 96
08/20/23 07:22 08/20/23 07:17 08/20/23 06:30 08/20/23 07:17 08/20/23 06:30
Lab Data
08/20/23 03:36
Laboratory Results
08/19/23 08/19/23 08/20/23
14:26 17:16 03:36
PT 16.5 H 17.8 H
INR 1.35 1.48
APTT 30.5 31.5
Diagnostic Testing:
Physical Exam
-
HEENT: Normocephalic and Anicteric
Cardiovascular: S1/S2, Murmur (PHILIP, heard best at RUSB) and Peripheral Edema (negative)
Respiratory: Clear, Wheeze (negative), Rales (negative), Rhonchi (negative) and Non-Labored Respirations
GI: Soft, Non Distended and Non Tender
Neurology: AO x 3
Skin: Warm and Dry
General: Comfortable and Sweats (negative)
Assessment
-
Assessment: 68-year-old male with a PMHx of hepatic cirrhosis with history of EV and portal hypertensive gastropathy, alcohol abuse, aortic stenosis s/p TAVR, history of stroke, hypertension, HLD and history of DVT who presents with vomiting blood.
Patient was started on Protonix and octreotide in the ER and given IV fluids. Gastroenterology was consulted and performed endoscopy showing small esophageal varices with no stigmata of hemorrhage. EVL was performed with 2 bands and there was
moderate portal hypertensive gastropathy with friable mucosa seen. Patient transferred to the ICU for further care and mortgage loan underwriter services consulted for additional management/recommendations. Patient has continued to improve, with no additional
hematemesis seen, PPI and octreotide drips have been stopped as per GI and he is now ready for downgrade out of ICU.
Chronic conditions present STOCK BROKER SUPERVISOR: Hepatic cirrhosis with history of esophageal varices and portal hypertensive gastropathy, severe s/p TAVR, history of CVA, hypertension, hyperlipidemia, seizure disorder, history of DVT, anemia, alcohol abuse
Impression:
#UGIB likely due to portal gastropathy due to decompensated liver cirrhosis
#Alcoholic cirrhosis c/b EV s/p banding x2 during EGD on 08/19/2023
#Anemia (baseline Hb ~9.5-11)
#Leukopenia
#Thrombocytopenia - due to cirrhosis
#Metabolic acidosis with normal AG
#Hypomagnesemia
#Hyperbilirubinemia (he chronically has elevated levels that alternates with normal T. bili levels)
#Alcohol abuse with ketosis likely due to reduced PO intake
#Hx of severe s/p TAVR
#Hx of grade II diastolic dysfunction seen on TTE from 03/2023
Plan:
- GI scoped patient yesterday, likely source of bleed is portal hypertensive gastropathy; he was banded x2 to his small EV with eradication of them
- Serial Hb and transfuse as needed to keep Hb>7, plt>50k, INR<1.8
- PPI 40mgm IV q12hr --> ok to change to PO
- Continue rocephin x 7 days --> if patient is discharged home before 7 days is up, then he should be given PO Abx to complete the total 7 days (i.e., cipro 500mg q12hr)
- Lactulose as per GI - titrate to 3-4 loose/formed BM per day
- If he is going to refuse lactulose, then would start rifaximin for prevention of HE. Defer to GI for this. He should see Hepatology as well as an outpatient
- Replete K>4, Mg>2
- Ok to resume patient's propanolol and anti-HTN meds given he is HDN stable and there was no endoscopic evidence of active EV bleeding from yesterday's EGD
- Strict alcohol avoidance reinforced - [facility] spoke with him and information was provided to the patient. He is amenable to speaking with them once he is discharged
- If patient experiences a re-bleed then would refer to IR for TIPS
- Continue thiamine and folate
- MSAS
- Advance diet as tolerated
- Maintain MAP>65
- DVT ppx: SCDs
Dispo: Transfer out of ICU to telemetry, which is ok with GI. Hot Press Operator/Pulmonary service will now sign off. Thank you for allowing us to be involved in the care of this patient. Please re-consult if there are any additional
questions/concerns, or if patient's respiratory status deteriorates.
Total time spent today was 55 minutes for this encounter. Time includes reviewing laboratory test/imaging results, reviewing pertinent medical records, obtaining and reviewing medical history, performing an appropriate exam, ordering medications,
tests and procedures. Time also includes documentation of this encounter, coordinating patient care and communicating with other healthcare professionals. Total time does not include separately billed tests performed on this date of service.
Data:
CXR 08-20-2023: No acute cardiopulmonary process.
US right upper extremity 08-14-2023: No evidence of deep venous thrombosis of the right upper extremity; Resolution of right upper extremity DVT seen on prior study.
[2023-08-20 08:56] LABS: Total Iron Binding Capacity 388 ug/dl (261-462)
--- NOTE | 2023-08-20 09:00 | W.PN.GI.CBS2 ---
Addendum entered and electronically signed by Cecilio Bernard MD 08/20/23 20:08:
I saw and examined the patient.
The PA's note was reviewed and I agree with the note.
Comment:
Hgb remains stable. Had EGD yesterday which showed likely bleed from friable portal HTN gastropathy. No stigmata of variceal hemorrhage, however empirical EVL performed. Agree with d/c octreo infusion and converting PPI to IV. Continue with
ceftriaxone. Pt will need to stop drinking.
Addendum entered and electronically signed by RODNEY Garsia 08/20/23 09:25:
after further review with patient and staff some blood noted with BM related to leakage from IV site that patient placed in toilet cont to monitor
Addendum entered and electronically signed by RODNEY Garsia 08/20/23 09:22:
After pt seen noted with small black stool and larger volume of red blood. Reviewed with nursing continue to monitor for any recurrent bleeding.
Original Note:
Today's Communication / Plan
-
s/p EGD with concern for portal gastropathy small varices
will transition off Octreotide and change PPI to BID
cont ceftriaxone daily
clear diet currently with some nausea -- reviewed with nursing if improved advance to regular diet later today
trend hbg 9.1 today - do not overtransfuse
last US03/2023 /AFP 05/2023- 3.16
folate and thiamine replacement
Propranolol as tolerated
add low dose Lactulose daily-- per patient ordered BID but increased diarrhea and takes 3 times per week at home
stressed need for patient to quit all ETOH
hepatology follow up after admission
message sent to office to set up follow up appt and review with Dr. Monaco for EGD as was scheduled for end august
Assessment / Plan
-
Pt is a 68yo with hx cirrhosis, EV, portal Hypertensive gastropathy, severe s/p TAVR, CVA presents with recurrent episode of vomiting blood. Pt with recent admission in May with EGD noted grade I varices with banding and portal HTN
gastropathy. In reviewing with patient he started with vomiting blood 08/18 AM with 3 episodes prior to admission including large volume of red blood then 2 further episode of 100ml+ each in ER prior to GI eval. NO NASAID or anticoagulation use.
hbg 11 and BUN 35 on admission
08/19/23 EGD - Small (< 5 mm) esophageal varices. No stigmata of variceal hemorrhage. Empirical EVL performed. Completely eradicated. Banded - Portal hypertensive gastropathy with friable mucosa,
which may be the source of bleeding - Normal duodenal bulb, first portion of the duodenum and second portion of the duodenum. No specimens collected. � � � � � � � � � � � � � � � � � � � � � � �
IMPRESSION
recurrent UGIB likely portal gastropathy
hx esophageal varices with banding 05/30/23
hx ETOH cirrhosis with decompensation and current ETOH use (MELD 3.0 13 on admission)
anemia
EtOH cirrhosis
thrombocytopenia
hyperkalemia - improved
other medical problems:
with prior TAVR
hx hemorrhagic CVA
-hx gastric ulcer
-hx with TAVR in 08/2022
-GERD on daily PPI
-seizure disorder
-hemorrhagic CVA
-hx ascites/paracentesis several years ago
PLAN:
s/p EGD with concern for portal gastropathy small varices
will transition off Octreotide and change PPI to BID
cont ceftriaxone daily
clear diet currently with some nausea -- reviewed with nursing if improved advance to regular diet later today
trend hbg 9.1 today - do not overtransfuse
last US03/2023 /AFP 05/2023- 3.16
folate and thiamine replacement
Propranolol as tolerated
add low dose Lactulose daily-- per patient ordered BID but increased diarrhea and takes 3 times per week at home
stressed need for patient to quit all ETOH
hepatology follow up after admission
message sent to office to set up follow up appt and review with Dr. Monaco for EGD as was scheduled for end of August
Subjective
Subjective
Date of Service: August 20, 2023
on clear diet no stools, no further vomiting overnight but some nausea this am after clears
Objective
Data Reviewed
Laboratory Data:
Laboratory Results
08/20/23 03:36
Laboratory Results
PT 17.8 Sec (11.4-14.6) H 08/20/23 03:36
INR 1.48 08/20/23 03:36
APTT 31.5 Sec (23.4-35.0) 08/19/23 17:16
Phosphorus 3.6 mg/dl (2.5-4.5) 08/19/23 17:16
Magnesium 1.5 mg/dl (1.6-2.3) L 08/20/23 03:36
Total Bilirubin 1.5 mg/dl (0.2-1.3) H 08/20/23 03:36
AST 53 U/L (17-59) 08/20/23 03:36
ALT 25 U/L (0-50) 08/20/23 03:36
Alkaline Phosphatase 62 U/L (38-126) 08/20/23 03:36
Lipase 267 U/L (23-300) 08/19/23 14:26
Vital Signs and I&O:
Vital Signs
Temp Pulse Resp BP Pulse Ox
98.3 F 58 16 138/75 96
08/20/23 07:22 08/20/23 07:17 08/20/23 06:30 08/20/23 07:17 08/20/23 06:30
I&O
08/19/23 08/20/23 08/21/23
06:59 06:59 06:59
Intake Total 2645.4 / 2645.4 231.7 / 231.7
Output Total 2200 / 2200 650 / 650
Balance 445.4 / 445.4 -418.3 / -418.3
Physical Exam
Physical Exam
HEENT: Anicteric and Moist mucous membranes
Cardiology: Normal Sinus Rhythm
Pulmonary: Clear
GI: Soft, Distended (minimal ) and Non Tender
Extremities: No Edema
Neuro: Other (some mild tremors on exam )
[2023-08-20] MEDS: DUPHALAC/CHRONULAC 20 GRAMS PO (09:47)
[2023-08-20 09:59] LABS: Iron 327 ug/dl (49-181); Percent Saturation 84 % (20-50)
[2023-08-20] MEDS: ZOFRAN 4 MG IV (11:06)
[2023-08-20] MEDS: PROTONIX 40 MG PO ×2 (11:06→22:03)
--- NOTE | 2023-08-20 11:24 | CM ---
Addendum entered by Constantin Henley 08/20/23 11:43:
CM met [facility] who just met with pt and pt's spouse. per Sabino, pt is not interested in inpatient D&A rehab but pt expressed his great interest to go to [facility] for individual D&A therapy. Per Sabino, pt stated that group therapy is
not for him.
At this point, pt will return back home with outpatient D&A related therapy at [facility] and family support. Spouse supports pt's plan.
D/C plan: home with [facility] individual D&A therapy and family support. Spouse to transport at discharge.
Original Note:
CM following re: discharge planning.
Discussed in Rounds, reviewed pt's chart, met with pt.
Pt is a 68 year old male, admitted with primary dx of UGIB likely due to portal gastropathy. Alcoholic cirrhosis.
Pt reports he lives with spouse and a brother in a H, 3 steps to enter, has 2 supportive children. 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 No DME, VN or SNF history.
Pt admitted to sig h/o alcohol abuse. Pt reports he has been drinking for years, choice of drink wine. Pt reports he drank heavier last year, stopped drinking last April and relapsed 3 days ago. Pt reports his spouse is removing alcohol from the
house, does not support pt's drinking habit. Pt reports he is known to [facility], and was going to [facility] for outpatient D&A related program. Pt expressed his agreement to meet with [facility] team. A referral to [facility] made, spoke to CRS Sabino and
he will meet with pt shortly.
Pt expressed his strong desire to be discharged home today.
PCP: Rasheeda Grubbs
Pharmacy: [facility]
D/C plan: [facility].
CM will follow with discharge plan updates as hospitalization progresses
--- NOTE | 2023-08-20 11:52 | W.PN.HOSP.TC ---
Today's Communication/Plan
-
Restart aspirin when okay with GI
Follow hemoglobin
Transfer to telemetry
PT eval
Assessment / Plan
Assessment / Plan
CVS: S1-S2 normal, systolic murmur at apex
Chest: CTA B/L
Abdomen: Soft, NT / Bowel sounds present
Extremities: No edema, normal pulses
EXHAUST MACHINE OPERATOR: Non focal exam
# Hematemesis-
Endoscopy 08/19/2023-small esophageal varices with no stigmata of hemorrhage. Eradicated and banded. Portal hypertensive gastropathy with friable mucosa which may be a source of bleeding. Normal duodenal bulb first portion of duodenum and second
portion of the duodenum. No specimens collected.
Diet advanced by GI
PPI drip and octreotide drip stopped by GI
Continue p.o. PPI
patient vomited Once after the lactulose
Ceftriaxone-defer to GI
Alcohol abstinence discussed
# Acute blood loss anemia secondary to hematemesis
# Hypomagnesemia-replace
# Microscopic hematuria-outpatient workup
# Alcohol abuse and alcohol liver disease
Portal hypertensive gastropathy
Continue propranolol and lactulose
MSAS protocol
IV thiamine
# Hyperkalemia-Better
# Hypertension-restart amlodipine, lisinopril and beta-blockers
# History of CVA-hold aspirin. Restart when okay with GI
Continue pravastatin when able to take p.o.
# History of TAVR for severe aortic stenosis
# Hypertension-continue beta-blockers when able to take p.o.
# Hyperlipidemia-continue pravastatin when able to take p.o.
# Seizures-likely secondary to alcohol use
Continue Lamictal
# Thrombocytopenia-likely secondary to alcohol use
# History of DVT
# SCDs for DVT prophylaxis
# CODE STATUS-full code
Discussed with GI GLASSWARE ENGRAVER
Discussed with nursing
Discussed with patient's at bedside
Anticipated Discharge: Within 24 hours
Subjective/Interval History
-
Date of Service: August 20, 2023
Objective Data
-
Labs:
Laboratory Results
08/20/23 08/20/23 08/20/23
03:36 11:00 17:00
WBC 4.6 L
Hgb 9.1 L Pending Pending
Hct 27.9 L Pending Pending
Plt Count 81 L D
PT 17.8 H
INR 1.48
Sodium 135
Potassium 4.0
Chloride 111 H
Carbon Dioxide 20 L
BUN 30 H
Creatinine 0.8
Glucose 148 H
Calcium 8.7
Total Bilirubin 1.5 H
AST 53
ALT 25
Alkaline Phosphatase 62
Vital Signs:
Vital Signs
Temp Pulse Resp BP Pulse Ox
98.1 F 58 16 138/75 96
08/20/23 11:01 08/20/23 07:17 08/20/23 06:30 08/20/23 07:17 08/20/23 06:30
I&O
08/19/23 08/20/23 08/21/23
06:59 06:59 06:59
Intake Total 2645.4 / 2645.4 589.4 / 589.4
Output Total 2200 / 2200 1050 / 1050
Balance 445.4 / 445.4 -460.6 / -460.6
[2023-08-20 13:26] LABS: Hematocrit 32.1 % (39.0-52.0); Hemoglobin 10.5 g/dL (13.0-18.0)
--- NOTE | 2023-08-20 14:41 | PTCARENOTE ---
Received patient form ICU. AAOx3. VSS. Denies any pain or discomfort. Oriented to unit.
[2023-08-20 16:04] LABS: Ferritin 40.6 ng/ml (17.9-464.0)
[2023-08-20 16:18] LABS: Vitamin B12 348 pg/ml (239-931)
[2023-08-20 17:07] LABS: Hematocrit 30.7 % (39.0-52.0)
[2023-08-20] MEDS: ROCEPHIN 1000 MG IV (17:33)
[2023-08-20] MEDS: STERILE WATER FOR INJECTION 10 ML IV (17:33)
[2023-08-20] MEDS: PRAVACHOL 80 MG PO (22:03)
[2023-08-21 01:30] VITALS: BP 175/75
[2023-08-21 03:38] VITALS: BP 156/78
[2023-08-21 06:17] LABS: INR 1.38
[2023-08-21 06:20] LABS: Hematocrit 29.9 % (39.0-52.0); Hemoglobin 9.6 g/dL (13.0-18.0); Mean Corp Hgb Conc. 32.1 g/dL (33.0-37.0); Mean Corpuscular Hgb 29.6 pg (27.0-31.0); Mean Corpuscular Volume 92.3 fL (80.0-94.0); Mean Platelet Volume 11.6 fL (7.4-10.4); Platelet Count 84 10^3/uL (130-400); Red Blood Cell Count 3.24 10^6/uL (4.70-6.10); Red Cell Dist. Width 15.1 % (11.5-14.5); White Blood Cell Count 5.1 10^3/uL (4.8-10.8)
[2023-08-21 06:38] LABS: Blood Urea Nitrogen 24 mg/dl (9-20); Calcium 9.4 mg/dl (8.4-10.2); Carbon Dioxide 25 mmol/L (22-30); Chloride 103 mmol/L (98-107); Estimated Creatinine Clearance 84 ml/min; Glucose 116 mg/dl (70-99); Magnesium 1.4 mg/dl (1.6-2.3); Potassium 3.9 mmol/L (3.5-5.1); Sodium 136 mmol/L (135-145); eGFR > 60.00
[2023-08-21 07:00] VITALS: BP 188/79
[2023-08-21] MEDS: FLUSH (NSS) 2 FLUSH IV ×2 (08:32→13:49)
[2023-08-21] MEDS: THIAMINE INJECTION 200 MG IV (08:32)
[2023-08-21] MEDS: DUPHALAC/CHRONULAC PO ×2 (08:32→08:40)
[2023-08-21] MEDS: PROTONIX 40 MG PO (08:32)
[2023-08-21] MEDS: LAMICTAL 150 MG PO (08:33)
[2023-08-21] MEDS: ZESTRIL 40 MG PO (08:33)
[2023-08-21] MEDS: INDERAL 40 MG PO (08:33)
[2023-08-21] MEDS: FOLVITE 1 MG PO (08:33)
[2023-08-21] MEDS: NORVASC 5 MG PO (08:33)
--- NOTE | 2023-08-21 09:07 | W.PN.GI.CBS2 ---
Today's Communication / Plan
-
GI s/o.
Assessment / Plan
-
Pt is a 68yo with hx cirrhosis, EV, portal Hypertensive gastropathy, severe s/p TAVR, CVA presents with recurrent episode of vomiting blood. Pt with recent admission in May with EGD noted grade I varices with banding and portal HTN
gastropathy. In reviewing with patient he started with vomiting blood 08/18 AM with 3 episodes prior to admission including large volume of red blood then 2 further episode of 100ml+ each in ER prior to GI eval. NO NASAID or anticoagulation use.
hbg 11 and BUN 35 on admission
08/19/23 EGD - Small (< 5 mm) esophageal varices. No stigmata of variceal hemorrhage. Empirical EVL performed. Completely eradicated. Banded - Portal hypertensive gastropathy with friable mucosa,
which may be the source of bleeding - Normal duodenal bulb, first portion of the duodenum and second portion of the duodenum. No specimens collected. � � � � � � � � � � � � � � � � � � � � � � �
Tolerating oral diet. Hgb stable. Again will need to stop drinking alcohol. Will need to f/u GI/hepatology. Prophylactic abx can be changed to cipro oral for 5-7 day course. Will s/o, call with questions.
Total Time Spent with Patient (in minutes): 35
Subjective
Subjective
Date of Service: August 21, 2023
Tolerating diet. Denies vomiting.
Objective
Data Reviewed
Laboratory Data:
Laboratory Results
08/21/23 05:24
08/21/23 05:24
Laboratory Results
PT 17.0 Sec (11.4-14.6) H 08/21/23 05:24
INR 1.38 08/21/23 05:24
APTT 31.5 Sec (23.4-35.0) 08/19/23 17:16
Phosphorus 3.6 mg/dl (2.5-4.5) 08/19/23 17:16
Magnesium 1.4 mg/dl (1.6-2.3) L 08/21/23 05:24
Total Bilirubin 1.5 mg/dl (0.2-1.3) H 08/20/23 03:36
AST 53 U/L (17-59) 08/20/23 03:36
ALT 25 U/L (0-50) 08/20/23 03:36
Alkaline Phosphatase 62 U/L (38-126) 08/20/23 03:36
Lipase 267 U/L (23-300) 08/19/23 14:26
Vital Signs and I&O:
Vital Signs
Temp Pulse Resp BP Pulse Ox
98.9 F 64 18 188/79 99
08/21/23 07:00 08/21/23 07:00 08/21/23 07:00 08/21/23 07:00 08/21/23 07:00
I&O
08/20/23 08/21/23 08/22/23
06:59 06:59 06:59
Intake Total 2645.4 / 2645.4 1219.4 / 1219.4
Output Total 2200 / 2200 1650 / 1650
Balance 445.4 / 445.4 -430.6 / -430.6
[2023-08-21 11:00] VITALS: BP 163/78
[2023-08-21] MEDS: MAGNESIUM SULFATE 100 IV (13:48)
--- NOTE | 2023-08-21 14:40 | W.PN.HOSP.TC ---
Today's Communication/Plan
-
Discharge
Assessment / Plan
Assessment / Plan
CVS: S1-S2 normal, systolic murmur at apex
Chest: CTA B/L
Abdomen: Soft, NT / Bowel sounds present
Extremities: No edema, normal pulses
DATA NETWORK ARCHITECT: Non focal exam
# Hematemesis-
Endoscopy 08/19/2023-small esophageal varices with no stigmata of hemorrhage. Eradicated and banded. Portal hypertensive gastropathy with friable mucosa which may be a source of bleeding. Normal duodenal bulb first portion of duodenum and second
portion of the duodenum. No specimens collected.
Diet advanced by GI
PPI drip and octreotide drip stopped by GI
Continue p.o. PPI
Ciprofloxacin for 5 more days at discharge
Alcohol abstinence discussed
#Patient felt some choking after he ate yesterday which passed. Discussed with GI. No further interventions.
# Acute blood loss anemia secondary to hematemesis
# Hypomagnesemia-replace 4 g today
# Microscopic hematuria-outpatient workup
# Alcohol abuse and alcohol liver disease
Portal hypertensive gastropathy
Continue propranolol and lactulose
MSAS protocol-
Thiamine
# Hyperkalemia-Better
# Hypertension-restart amlodipine, lisinopril and beta-blockers
# History of CVA Restart aspirin-okay with GI
Continue pravastatin when able to take p.o.
# History of TAVR for severe aortic stenosis
# Hypertension-continue beta-blockers
# Hyperlipidemia-continue pravastatin
# Seizures-likely secondary to alcohol use
Continue Lamictal
# Thrombocytopenia-likely secondary to alcohol use
# History of DVT
# SCDs for DVT prophylaxis
# CODE STATUS-full code
Discussed with GI-Dr Bernard
Discussed with nursing
Discharge after Mag Guilherme done
Discharge time 31 min
Anticipated Discharge: Today
Subjective/Interval History
-
Date of Service: August 21, 2023
Objective Data
-
Labs:
Laboratory Results
08/21/23
05:24
WBC 5.1
Hgb 9.6 L
Hct 29.9 L
Plt Count 84 L
PT 17.0 H
INR 1.38
Sodium 136
Potassium 3.9
Chloride 103
Carbon Dioxide 25
BUN 24 H
Creatinine 0.9
Glucose 116 H
Calcium 9.4
Vital Signs:
Vital Signs
Temp Pulse Resp BP Pulse Ox
98.9 F 59 18 163/78 98
08/21/23 11:00 08/21/23 11:00 08/21/23 11:00 08/21/23 11:00 08/21/23 11:00
I&O
08/20/23 08/21/23 08/22/23
06:59 06:59 06:59
Intake Total 2645.4 / 2645.4 1219.4 / 1219.4
Output Total 2200 / 2200 1650 / 1650
Balance 445.4 / 445.4 -430.6 / -430.6
--- NOTE | 2023-08-21 14:42 | W.DS.TRANS ---
Addendum entered and electronically signed by Yariel Farnsworth MD 08/21/23 15:21:
Dictation- [id number]
Original Note:
DC Summary - Corporate Quality Manager
-
Discharge Instructions:
Discharge Diagnosis/Procedures Hematemesis, esophageal varices, portal
gastropathy, anemia, low magnesium, alcohol use,
hypertension, history of CVA, high cholesterol,
seizures, thrombocytopenia
Diet 2 Gram Sodium
Activity As tolerated
Driving Restrictions As prior to admission
Blood Work CBC ,CMP 1 month
Other Services VN
Wound Care avoidance of all Alcohol
Instructions:
Stand-Alone Forms:
Changes to Home Medications: Yes
Discharge Medications:
DC Medications w/original date entered in [facility]
amlodipine 5 mg tablet 5 mg PO DAILY Blood pressure 07/01/22
coenzyme Q10 300 mg capsule (Co Q-10) 300 mg PO HS Supplement 07/01/22
pravastatin 80 mg tablet 80 mg PO HS High cholesterol 07/01/22
propranolol 40 mg tablet 40 mg PO BID Blood pressure 07/01/22
lisinopril 40 mg tablet (Zestril) 40 mg PO DAILY Blood pressure 07/02/22
izgaplwbouzm-mcqpxnmk-mzcddw tablet 1 tab PO DAILY PRN supplement 08/19/23
Glucosamine Chondroitin 1 tab PO BID Supplement ##0 08/21/23
aspirin 81 mg tablet,delayed release 81 mg PO DAILY Blood clot prevention/tx #0 tabs 08/21/23
ciprofloxacin HCl 500 mg tablet (Cipro) 500 mg PO BID Gastrointestinal issue #10 tabs 08/21/23
folic acid 1 mg tablet 1 mg PO DAILY Supplement #0 tabs 08/21/23
lactulose 20 gram/30 mL oral solution 30 g (45 mL) PO .2-3 TIMES PER WEEK Gastrointestinal issue #0 mL 08/21/23
lamotrigine 150 mg tablet 150 mg PO BID Seizures #0 tabs 08/21/23
magnesium oxide 500 mg PO DAILY Electrolyte Repletion #0 tabs 08/21/23
omega 7-zzq-emz-fish oil 1,000 mg (120 mg-180 mg) capsule (Fish Oil) 1 cap PO DAILY Supplement #0 caps 08/21/23
pantoprazole 40 mg tablet,delayed release 40 mg PO BID Gastrointestinal issue #60 tabs 08/21/23
thiamine HCl (vitamin B1) 100 mg tablet 100 mg PO DAILY Supplement #14 tabs 08/21/23
Home Medication Changes
new
ciprofloxacin HCl 500 mg tablet (Cipro) 500 mg PO BID Gastrointestinal issue #10 tabs 08/21/23
magnesium oxide 500 mg PO DAILY Electrolyte Repletion #0 tabs 08/21/23
Protonix changed to BID
Pending Results: No
--- NOTE | 2023-08-21 15:53 | CM ---
CM following re: d/c planning
Chart reviewed
Pt is medically stable for d/c
IMM was reviewed with patient and copy provided
Pt to be provided a script for outpatient D&A tx at [facility]
Pt states his spouse will transport him home at time of d/c
Antibiotic to continue PO for the next 5-7days
No additional d/c needs to note
PLAN; d/c home with outpatient D&A tx
[2023-08-21 16:08] VITALS: BP 152/66
[2023-08-21] MEDS: ROCEPHIN 1000 MG IV (17:51)
[2023-08-21] MEDS: FLUSH (NSS) 1 FLUSH IV (17:51)
== END 2023-08-21 18:52 | disposition home health service (06) | DRG 369 ==
LOC: 4 EAST ACU 18:02
PROVIDERS: Emergency Medicine; Nurse Practitioner Adult Health; Physician Assistant; ADMITTING PHYSICIAN Hospitalist; CONSULT PHYSICIAN Internal Medicine Critical Care Medicine; CONSULT PHYSICIAN Internal Medicine Gastroenterology; FAMILY PHYSICIAN Family Medicine
PROC: 06L38CZ Occlusion of Esophageal Vein with Extraluminal Device, Via Natural or Artificial Opening Endoscopic (ICD-10-PCS; 2023-08-19)
PROC: 06L28CZ Occlusion of Gastric Vein with Extraluminal Device, Via Natural or Artificial Opening Endoscopic (ICD-10-PCS; 2023-08-19)
DX: I85.01 Esophageal varices with bleeding (principal); D62 Acute posthemorrhagic anemia; E87.20 Acidosis, unspecified; K76.6 Portal hypertension; K92.2 Gastrointestinal hemorrhage, unspecified; Z87.891 Personal history of nicotine dependence; K70.30 Alcoholic cirrhosis of liver without ascites; D69.59 Other secondary thrombocytopenia; D72.819 Decreased white blood cell count, unspecified; E83.42 Hypomagnesemia; F10.10 Alcohol abuse, uncomplicated; E87.5 Hyperkalemia; I10 Essential (primary) hypertension; E78.00 Pure hypercholesterolemia, unspecified; K31.89 Other diseases of stomach and duodenum; D69.6 Thrombocytopenia, unspecified; E80.6 Other disorders of bilirubin metabolism; I85.11 Secondary esophageal varices with bleeding; I86.4 Gastric varices
CPT/HCPCS: 71045; 80048; 80053; 80306; 81003; 81015; 82010; 82077; 82607; 82728; 82977; 83540; 83550; 83690; 83735; 84100; 84132; 85014; 85018; 85025; 85027; 85610; 85730; 86850; 86900; 86901; 93005; 97163

== ENCOUNTER → 2023-09-05 11:08 | Outpatient (REF) | payer MEDICARE, SELFPAY ==
[2023-09-05 12:44] LABS: HDL Cholesterol 69 mg/dl; LDL Cholesterol, Calculated 99 mg/dl; Total Cholesterol 202 mg/dl (50-199); Triglyceride 173 mg/dl (10-149); Very Low Density Lipoprotein 34 mg/dl (0-30)
[2023-09-05 13:23] LABS: PSA, Total - Screen 2.25 ng/ml (0.0-4.0); TSH Reflex To Free T4 0.58 uIU/ml (0.47-4.68)
== END ==
LOC: REG 11:08
PROVIDERS: ATTENDING PHYSICIAN Family Medicine
DX: E78.2 Mixed hyperlipidemia (principal); Z12.5 Encounter for screening for malignant neoplasm of prostate
CPT/HCPCS: 36415; 80061; 84443; G0103

== ENCOUNTER → 2023-09-19 15:06 | Outpatient (REF) | payer MEDICARE, SELFPAY ==
[2023-09-19 16:29] LABS: % Basophils 0.7 % (0-2); % Eosinophils 2.7 % (0-6); % Immature Granulocytes 0.2 % (0-0.5); % Lymphocytes 22.4 % (20.5-51.1); % Monocytes 13.9 % (1.7-9.3); % Neutrophils 60.1 % (42.2-75.2); Absolute Eosinophils 0.1 10^3/uL (0-0.7); Absolute Lymphocytes 0.9 10^3/uL (1.2-3.4); Absolute Monocytes 0.6 10^3/uL (0.1-0.6); Absolute Neutrophils 2.5 10^3/uL (1.4-6.5); Hematocrit 34.2 % (39.0-52.0); Hemoglobin 11.3 g/dL (13.0-18.0); Mean Corpuscular Hgb 29.2 pg (27.0-31.0); Mean Corpuscular Volume 88.4 fL (80.0-94.0); Mean Platelet Volume 11.4 fL (7.4-10.4); Nucleated Red Blood Cells % 0 % (-); Platelet Count 126 10^3/uL (130-400); Red Blood Cell Count 3.87 10^6/uL (4.70-6.10); Red Cell Dist. Width 15.7 % (11.5-14.5); White Blood Cell Count 4.1 10^3/uL (4.8-10.8)
[2023-09-19 16:37] LABS: ALT (SGPT) 28 U/L (0-50); AST (SGOT) 54 U/L (17-59); Albumin 4.4 g/dl (3.5-5.0); Alkaline Phosphatase 109 U/L (38-126); Blood Urea Nitrogen 30 mg/dl (9-20); Calcium 10.9 mg/dl (8.4-10.2); Carbon Dioxide 19 mmol/L (22-30); Chloride 107 mmol/L (98-107); Glucose 113 mg/dl (70-99); Magnesium 1.6 mg/dl (1.6-2.3); Potassium 5.1 mmol/L (3.5-5.1); Sodium 136 mmol/L (135-145); Total Bilirubin 1.6 mg/dl (0.2-1.3); Total Protein 8.5 g/dl (6.3-8.2); eGFR 49.77
== END ==
LOC: REG 15:06
PROVIDERS: ATTENDING PHYSICIAN Family Medicine
DX: I10 Essential (primary) hypertension (principal); E78.2 Mixed hyperlipidemia; F10.10 Alcohol abuse, uncomplicated; E83.42 Hypomagnesemia
CPT/HCPCS: 36415; 80053; 83735; 85025

== ENCOUNTER → 2024-01-29 11:13 | Outpatient (REF) | payer MEDICARE, SELFPAY ==
[2024-01-29 12:20] LABS: INR 1.25; PT 15.8 Sec (11.4-14.6)
[2024-01-29 12:27] LABS: % Basophils 0.4 % (0-2); % Immature Granulocytes 0.2 % (0-0.5); % Lymphocytes 17.7 % (20.5-51.1); % Neutrophils 66.7 % (42.2-75.2); Absolute Eosinophils 0.1 10^3/uL (0-0.7); Absolute Lymphocytes 0.9 10^3/uL (1.2-3.4); Absolute Monocytes 0.7 10^3/uL (0.1-0.6); Absolute Neutrophils 3.4 10^3/uL (1.4-6.5); Hematocrit 37.5 % (39.0-52.0); Hemoglobin 13.4 g/dL (13.0-18.0); Mean Corp Hgb Conc. 35.7 g/dL (33.0-37.0); Mean Corpuscular Hgb 32.6 pg (27.0-31.0); Mean Corpuscular Volume 91.2 fL (80.0-94.0); Mean Platelet Volume 10.7 fL (7.4-10.4); Nucleated Red Blood Cells % 0 % (-); Platelet Count 114 10^3/uL (130-400); Red Blood Cell Count 4.11 10^6/uL (4.70-6.10); Red Cell Dist. Width 14.6 % (11.5-14.5); White Blood Cell Count 5.1 10^3/uL (4.8-10.8)
[2024-01-29 12:48] LABS: ALT (SGPT) 29 U/L (0-50); AST (SGOT) 47 U/L (17-59); Albumin 4.4 g/dl (3.5-5.0); Alkaline Phosphatase 103 U/L (38-126); Blood Urea Nitrogen 22 mg/dl (9-20); Calcium 10.6 mg/dl (8.4-10.2); Carbon Dioxide 15 mmol/L (22-30); Chloride 102 mmol/L (98-107); Glucose 119 mg/dl (70-99); Sodium 135 mmol/L (135-145); Total Bilirubin 2.1 mg/dl (0.2-1.3); Total Protein 7.9 g/dl (6.3-8.2); eGFR > 60.00
== END ==
LOC: REG 11:13
PROVIDERS: ATTENDING PHYSICIAN Specialist; FAMILY PHYSICIAN Family Medicine
DX: K70.30 Alcoholic cirrhosis of liver without ascites (principal)
CPT/HCPCS: 36415; 80053; 82105; 85025; 85610; 85730

== ENCOUNTER 2024-02-05 20:23 | Emergency (ER) | payer MEDICARE, SELFPAY ==
[2024-02-05 20:25] VITALS: BP 123/59
[2024-02-05 21:22] LABS: % Basophils 0.6 % (0-2); % Eosinophils 1.6 % (0-6); % Immature Granulocytes 0.3 % (0-0.5); % Lymphocytes 18.5 % (20.5-51.1); % Monocytes 13.3 % (1.7-9.3); % Neutrophils 65.7 % (42.2-75.2); Absolute Eosinophils 0.1 10^3/uL (0-0.7); Absolute Lymphocytes 1.2 10^3/uL (1.2-3.4); Absolute Monocytes 0.9 10^3/uL (0.1-0.6); Absolute Neutrophils 4.4 10^3/uL (1.4-6.5); Hematocrit 37.6 % (39.0-52.0); Hemoglobin 13.1 g/dL (13.0-18.0); Mean Corp Hgb Conc. 34.8 g/dL (33.0-37.0); Mean Corpuscular Hgb 31.6 pg (27.0-31.0); Mean Corpuscular Volume 90.6 fL (80.0-94.0); Mean Platelet Volume 11.3 fL (7.4-10.4); Nucleated Red Blood Cells % 0 % (-); Platelet Count 135 10^3/uL (130-400); Red Blood Cell Count 4.15 10^6/uL (4.70-6.10); Red Cell Dist. Width 14.6 % (11.5-14.5); White Blood Cell Count 6.7 10^3/uL (4.8-10.8)
[2024-02-05 21:36] LABS: ALT (SGPT) 26 U/L (0-50); AST (SGOT) 40 U/L (17-59); Albumin 4.3 g/dl (3.5-5.0); Alkaline Phosphatase 92 U/L (38-126); Blood Urea Nitrogen 28 mg/dl (9-20); Carbon Dioxide 19 mmol/L (22-30); Chloride 101 mmol/L (98-107); Glucose 128 mg/dl (70-99); Potassium 5.5 mmol/L (3.5-5.1); Sodium 137 mmol/L (135-145); Total Protein 7.9 g/dl (6.3-8.2); eGFR 49.77
[2024-02-05 21:57] VITALS: BP 127/60
[2024-02-05 23:00] VITALS: BP 143/66
--- NOTE | 2024-02-05 23:10 | ED.GENMED ---
History of Present Illness
General
Chief Complaint: Fainting/Passed Out
Source: patient and family
Exam Limitations: none
Time Seen by Provider: 02/05/24 22:53
History of Present Illness
History of Present Illness:
See MDM
Past History
Past History
ED Past Medical History: CVA (Cerebral hemorrhage with stroke.), Valvular disease and Other (History of thrombocytopenia, history of GI bleeding)
ED Past Surgical History: Cardiac and Other (Noncontributory)
Social History
Tobacco: Non-smoker
Alcohol: None
Drug: None
Personal:
Living: with family
Employment: Employed
Family History
Family History: Other (Noncontributory)
Phy Exam
Physical Exam
Physical Exam:
See MDM
Course
Orders/Labs/Results
Orders:
Orders
02/05/24 20:33
Electrocardiogram (*1) Urgent
Reason for Study: Syncope
EKG- Treatment ONCE
02/05/24 20:58
Complete Blood Count/With Diff Urgent
Comprehensive Metabolic Panel Urgent
02/05/24 23:03
Sodium Zirconium Cyclosilicate [Lokelma] 5 gram PO NOW STA
Abnormal Lab Results
02/05/24
20:58
RBC 4.15 L 10^6/uL
(4.70-6.10)
Hct 37.6 L %
(39.0-52.0)
MCH 31.6 H pg
(27.0-31.0)
RDW 14.6 H %
(11.5-14.5)
MPV 11.3 H fL
(7.4-10.4)
Absolute Monos (auto) 0.9 H 10^3/uL
(0.1-0.6)
Lymphocytes % 18.5 L %
(20.5-51.1)
Monocytes % 13.3 H %
(1.7-9.3)
Potassium 5.5 H mmol/L
(3.5-5.1)
Carbon Dioxide 19 L mmol/L
(22-30)
BUN 28 H mg/dl
(9-20)
Creatinine 1.5 H mg/dL
(0.7-1.3)
Glucose 128 H mg/dl
(70-99)
Total Bilirubin 2.0 H mg/dl
(0.2-1.3)
02/05/24 20:58
02/05/24 20:58
Vital Signs
Initial and Last Documented VS:
Initial Vital Signs
Temp Pulse Resp BP Pulse Ox
97.4 F 57 18 123/59 98
02/05/24 20:25 02/05/24 20:25 02/05/24 20:25 02/05/24 20:25 02/05/24 20:25
Last Documented Vital Signs
Temp Pulse Resp BP Pulse Ox
97.4 F 57 18 123/59 98
02/05/24 20:25 02/05/24 20:25 02/05/24 20:25 02/05/24 20:25 02/05/24 20:25
MDM/Problems Addressed
Differential Diagnosis Includes:
HPI and MDM Narrative:
68-year-old male presenting for evaluation of syncope. Patient was eating dinner and then all of a sudden felt hot and faint. His states he passed out for few seconds. No seizure activity. On arrival, patient feels back to his baseline and
denies any complaints. Patient believes this was an accumulation of receiving close COVID and influenza vaccines today and in the heat and not drinking of water. Patient has remained in sinus rhythm on monitor while he is being here. Blood work
shows mild hypokalemia and elevated creatinine. This is likely related to dehydration. Will give 5 mg of Lokelma. Patient states he feels comfortable going home. Discussed having his blood work rechecked next week and discussed Holter monitor as
an outpatient
Physical exam
General: Well appearing and non-toxic
HEENT: protecting airway
Neck: appears supple
CV: No evidence of cyanosis. Regular rate and rhythm
Resp: No accessory muscle use
Abd: Non-distended
Extremities: No deformities
Neuro: alert
Psych: Normal affect
Skin: Intact
Problems Addressed including Acute and Chronic Conditions affecting care:
1. Syncope
Acuity: acute
Prognosis: stable
Details: Likely in the setting of vasovagal.
2. Hyperkalemia
Acuity: acute
Prognosis: stable
Details: Likely in setting of dehydration. Will give dose of Lokelma
Differential Diagnosis (but not limited to): Dehydration, vasovagal syncope, cardiogenic syncope, arrhythmia
Testing considered: Troponin but denies chest pain shortness of breath
Drug therapy (if applicable): OTC meds, please see d/c instruction regarding Rx drugs
Amount and/or Complexity of Data Reviewed
Clinical info obtained from: Patient
External data reviewed: N/A
Labs I independently reviewed (but not limited to): Mild hyperkalemia and elevated creatinine
Radiology: N/A
Pulse Ox: not hypoxic
EKG independently reviewed: Sinus rhythm, normal axis, no STEMI
Orthopedic Coder: Sinus rhythm
Critical Care: N/A
Risk of Complication:
Social Determinants of health: Good social support
Discussed with other providers: N/A
Escalation of Care includes Admit/Obs: After being observed in the Emergency Department, pt stable for discharge.
Occasional wrong word or 'sound a like' substitutions may have occurred due to the inherent limitations of voice recognition software. Read the chart carefully and recognize, using context, where substitutions have occurred.
*Critical Care Note
Total Time (30-74mins, 75-104mins- exclusive of procedures): Not Applicable
ED Attending Note
-
Portions of this chart may have been created with voice recognition software.� Occasional wrong word or��sound alike� substitutions may have occurred due to the inherent limitations of voice recognition software.
Discharge Plan
Departure
Patient Disposition: Home (Routine Discharge)
Date of Disposition: 02/05/24
Time of Disposition: 23:14
Patient with high blood pressure during this ER visit?: No
Discharge Problem:
Syncope, Hyperkalemia
Instructions: Syncope (Fainting) (DC)
Prescriptions:
No Action
amlodipine 5 mg Tablet
5 mg PO DAILY
pravastatin 80 mg Tablet
80 mg PO HS
Co Q-10 300 mg Capsule
300 mg PO HS
propranolol 40 MG tablet
40 mg PO BID
lisinopril [Zestril] 40 mg tablet
40 mg PO DAILY
uqdzhygtxplv-ekhtttqz-fyscdc Tablet
1 tab PO DAILY PRN (Reason: supplement)
pantoprazole 40 mg Tablet,Delayed Release (Dr/Ec)
40 mg PO BID Qty: 60 0RF
magnesium oxide 500 mg magnesium Tablet
500 mg PO DAILY Qty: 0 0RF
folic acid 1 mg Tablet
1 mg PO DAILY Qty: 0 0RF
ciprofloxacin HCl [Cipro] 500 mg tablet
500 mg PO BID Qty: 10 0RF
lamotrigine 150 mg Tablet
150 mg PO BID Qty: 0 0RF
aspirin 81 mg Tablet,Delayed Release (Dr/Ec)
81 mg PO DAILY Qty: 0 0RF
omega 3-ypc-ovk-fish oil [Fish Oil] 1,000 mg (120 mg-180 mg) Capsule
1 cap PO DAILY Qty: 0 0RF
lactulose 20 gram/30 mL solution
30 g PO .2-3 TIMES PER WEEK Qty: 0 0RF
Patient Comments:
08/19/2023, prescribed BID but pt. takes 2-3 times per week.
Glucosamine Chondroitin
1 tab PO BID Qty: 0 0RF
Patient Comments:
08/19/2023, per pt., 1200 mg of Glucosamine and unsure of Chondroitin strength.
thiamine HCl (vitamin B1) 100 mg tablet
100 mg PO DAILY Qty: 14 0RF
Referrals:
Rasheeda Grubbs MD [Family Provider] -
Activity Restrictions/Additional Instructions:
As we discussed, the passing out episode is likely related to your recent vaccines today and being out in the heat. Regardless, please talk to your doctor about a Holter monitor. I cannot rule out that you had an irregular heart rhythm which
caused you to pass out. You were given a medicine called Lokelma to lower your elevated potassium. Please talk to your doctor about repeating your potassium and creatinine level this week.
Please return for any worsening symptoms.
You may return at any time if you have further concerns.
Thank you for choosing [facility].
Interventions
Interventions:
*Risk Screen - Suicide Last Done: 02/05/24 20:25
*General Assessment Last Done: 02/05/24 20:25
*Neglect/Abuse Screening Last Done: 02/05/24 20:25
Discharge Date and Time
Print Language: SETSWANA
[2024-02-05 23:14] VITALS: BP 127/54
[2024-02-05] MEDS: LOKELMA 5 GRAM PO (23:22)
== END 2024-02-06 00:12 | disposition home or self-care (01) ==
LOC: EMR 20:23
PROVIDERS: EMERGENCY PHYSICIAN Student in an Organized Health Care Education/Training Program; FAMILY PHYSICIAN Family Medicine
DX: R55 Syncope and collapse (principal); E87.5 Hyperkalemia; R79.89 Other specified abnormal findings of blood chemistry; Z86.73 Personal history of transient ischemic attack (TIA), and cerebral infarction without residual deficits
CPT/HCPCS: 99283; 80053; 85025; 93005

== ENCOUNTER → 2024-02-20 13:21 | Outpatient (REF) | payer MEDICARE, SELFPAY ==
[2024-02-20 17:00] LABS: Blood Urea Nitrogen 22 mg/dl (9-20); Calcium 10.3 mg/dl (8.4-10.2); Carbon Dioxide 20 mmol/L (22-30); Chloride 102 mmol/L (98-107); Glucose 96 mg/dl (70-99); Potassium 5.4 mmol/L (3.5-5.1); Sodium 136 mmol/L (135-145); eGFR > 60.00
== END ==
LOC: RAD 13:21
PROVIDERS: ATTENDING PHYSICIAN Specialist; FAMILY PHYSICIAN Family Medicine
DX: K70.30 Alcoholic cirrhosis of liver without ascites (principal); E87.5 Hyperkalemia; E86.0 Dehydration
CPT/HCPCS: 36415; 76700; 80048

== ENCOUNTER → 2024-10-04 15:03 | Outpatient (REF) | payer MEDICARE, SELFPAY | LOC: RCS 15:03 | PROVIDERS: ATTENDING PHYSICIAN Internal Medicine Cardiovascular Disease; FAMILY PHYSICIAN Family Medicine | DX: I35.0 Nonrheumatic aortic (valve) stenosis (principal); Z95.3 Presence of xenogenic heart valve | CPT/HCPCS: 93306 ==

== ENCOUNTER → 2025-01-29 09:42 | Outpatient (REF) | payer MEDICARE, SELFPAY | LOC: RAD 09:42 | PROVIDERS: ATTENDING PHYSICIAN Physician Assistant Medical; FAMILY PHYSICIAN Family Medicine | DX: S72.001A Fracture of unspecified part of neck of right femur, initial encounter for closed fracture (principal) | CPT/HCPCS: 73700 ==

== ENCOUNTER → 2025-02-07 15:12 | Outpatient (REF) | payer MEDICARE, SELFPAY ==
[2025-02-07 16:05] LABS: Hematocrit 37.4 % (39.0-52.0); Hemoglobin 13.0 g/dL (13.0-18.0); Mean Corp Hgb Conc. 34.8 g/dL (33.0-37.0); Mean Corpuscular Volume 96.9 fL (80.0-94.0); Nucleated Red Blood Cells % 0 % (-); Platelet Count 130 10^3/uL (130-400); Red Cell Dist. Width 12.6 % (11.5-14.5)
[2025-02-07 16:23] LABS: Blood Urea Nitrogen 18 mg/dl (9-20); Calcium 9.9 mg/dl (8.4-10.2); Carbon Dioxide 23 mmol/L (22-30); Chloride 99 mmol/L (98-107); Glucose 114 mg/dl (70-99); Potassium 5.2 mmol/L (3.5-5.1); Sodium 130 mmol/L (135-145); eGFR 58.73
== END ==
LOC: REG 15:12
PROVIDERS: ATTENDING PHYSICIAN Orthopaedic Surgery; FAMILY PHYSICIAN Family Medicine
DX: Z01.818 Encounter for other preprocedural examination (principal)
CPT/HCPCS: 36415; 80048; 85025

== ENCOUNTER → 2025-02-09 12:49 | Outpatient (REF) | payer MEDICARE, SELFPAY ==
[2025-02-09 14:33] LABS: Blood Urea Nitrogen 28 mg/dl (9-20); Calcium 9.5 mg/dl (8.4-10.2); Carbon Dioxide 20 mmol/L (22-30); Chloride 110 mmol/L (98-107); Glucose 101 mg/dl (70-99); Potassium 6.0 mmol/L (3.5-5.1); Sodium 138 mmol/L (135-145); eGFR 53.74
== END ==
LOC: REG 12:49
PROVIDERS: ATTENDING PHYSICIAN Nurse Practitioner Family; FAMILY PHYSICIAN Family Medicine; OTHER PHYSICIAN Orthopaedic Surgery
DX: E87.1 Hypo-osmolality and hyponatremia (principal)
CPT/HCPCS: 36415; 80048

== ENCOUNTER → 2025-02-11 10:29 | Outpatient (REF) | payer MEDICARE, SELFPAY ==
[2025-02-11 15:21] LABS: Blood Urea Nitrogen 18 mg/dl (9-20); Calcium 9.5 mg/dl (8.4-10.2); Carbon Dioxide 22 mmol/L (22-30); Chloride 112 mmol/L (98-107); Glucose 110 mg/dl (70-99); Potassium 5.2 mmol/L (3.5-5.1); Sodium 140 mmol/L (135-145); eGFR > 60.00
== END ==
LOC: REG 10:29
PROVIDERS: ATTENDING PHYSICIAN Nurse Practitioner Family; FAMILY PHYSICIAN Family Medicine
DX: E87.5 Hyperkalemia (principal)
CPT/HCPCS: 36415; 80048

== ENCOUNTER 2025-02-24 17:53 | Emergency (ER) | payer MEDICARE, SELFPAY ==
[2025-02-24 17:55] VITALS: BP 144/68
[2025-02-24 18:25] VITALS: BP 157/74
[2025-02-24 18:34] LABS: Hematocrit 37.1 % (39.0-52.0); Hemoglobin 12.7 g/dL (13.0-18.0); Mean Corp Hgb Conc. 34.2 g/dL (33.0-37.0); Mean Corpuscular Volume 97.9 fL (80.0-94.0); Nucleated Red Blood Cells % 0 % (-); Platelet Count 169 10^3/uL (130-400); Red Cell Dist. Width 13.1 % (11.5-14.5)
[2025-02-24] MEDS: DILAUDID 1 MG IV ×2 (18:51→23:44)
[2025-02-24] MEDS: ZOFRAN 4 MG IV (18:51)
[2025-02-24 19:00] LABS: Blood Urea Nitrogen 35 mg/dl (9-20); Calcium 9.5 mg/dl (8.4-10.2); Carbon Dioxide 19 mmol/L (22-30); Chloride 100 mmol/L (98-107); Estimated Creatinine Clearance 56 ml/min; Glucose 100 mg/dl (70-99); Sodium 129 mmol/L (135-145); eGFR 58.37
[2025-02-24 19:01] VITALS: BP 161/72
--- NOTE | 2025-02-24 19:36 | ED.GENMED ---
History of Present Illness
<Joselyn Baugh PA-C - Last Filed: 02/25/25 01:11>
General
Chief Complaint: Fall
Source: patient
Exam Limitations: none
Time Seen by Provider: 02/24/25 19:15
Nursing documentation reviewed up to this point in time: agreed with
History of Present Illness
History of Present Illness:
see MDM
Past History
<LINDA Bergeron Last Filed: 02/25/25 01:11>
Past History
ED Past Medical History: CVA (Cerebral hemorrhage with stroke.), Valvular disease and Other (History of thrombocytopenia, history of GI bleeding)
ED Past Surgical History: Cardiac and Other (Noncontributory)
Social History
Tobacco: Non-smoker
Alcohol: None
Drug: None
Personal:
Living: with family
Employment: Employed
Family History
Family History: Other (Noncontributory)
Review of Systems
<LINDA Bergeron Last Filed: 02/25/25 01:11>
Review of Systems
Allergies reviewed?: Yes
All Other Systems: Not applicable
Phy Exam
<LINDA Bergeron Last Filed: 02/25/25 01:11>
Physical Exam
Physical Exam:
see MDM
Course
<LINDA Bergeron Last Filed: 02/25/25 01:11>
Orders/Labs/Results
Orders:
Orders
02/24/25 18:25
Alcohol Urgent
Basic Metabolic Panel Urgent
Complete Blood Count/With Diff Urgent
02/24/25 18:44
HYDROmorphone [Dilaudid] 1 mg IV NOW STA
Ondansetron Injectable [Zofran] 4 mg IV NOW STA
CR Femur - Right Min 2 Vw Urgent
Comment:
Reason For Exam: trauma
CR Hip - RT w/wo Pel 2-3 Vw* Urgent
Comment:
Reason For Exam: fall trauma
Include a pelvis x-ray?: Yes
02/24/25 19:34
Add On- LAB Urgent
Tests Added?: alcohol
02/24/25 22:06
CT Pelvis W/o Iv Contrast Urgent
Comment:
Reason For Exam: hip ORIF 2 weeks ago, fall; xray neg' eval pelvis
02/24/25 23:20
HYDROmorphone [Dilaudid] 1 mg IV NOW STA
Abnormal Lab Results
02/24/25
18:25
RBC 3.79 L 10^6/uL
(4.70-6.10)
Hgb 12.7 L g/dL
(13.0-18.0)
Hct 37.1 L %
(39.0-52.0)
MCV 97.9 H fL
(80.0-94.0)
MCH 33.5 H pg
(27.0-31.0)
MPV 10.6 H fL
(7.4-10.4)
Abs Immat Gran (auto) 0.2 H 10^3/uL
(0-0.05)
Absolute Monos (auto) 1.3 H 10^3/uL
(0.1-0.6)
Immature Gran % 1.8 H %
(0-0.5)
Lymphocytes % 15.6 L %
(20.5-51.1)
Monocytes % 14.5 H %
(1.7-9.3)
Sodium 129 L mmol/L
(135-145)
Carbon Dioxide 19 L mmol/L
(22-30)
BUN 35 H mg/dl
(9-20)
Glucose 100 H mg/dl
(70-99)
02/24/25 18:25
02/24/25 18:25
Vital Signs
Initial and Last Documented VS:
Initial Vital Signs
Temp Pulse Resp BP Pulse Ox
36.4 C 46 15 144/68 99
02/24/25 17:55 02/24/25 17:55 02/24/25 17:55 02/24/25 17:55 02/24/25 17:55
Last Documented Vital Signs
Temp Pulse Resp BP Pulse Ox
36.4 C 56 23 162/70 99
02/24/25 17:55 02/24/25 22:15 02/24/25 22:15 02/24/25 22:05 02/24/25 19:38
<Ella Sanchez, DO - Last Filed: 02/25/25 01:09>
Orders/Labs/Results
Orders:
Orders
02/24/25 18:25
Alcohol Urgent
Basic Metabolic Panel Urgent
Complete Blood Count/With Diff Urgent
02/24/25 18:44
HYDROmorphone [Dilaudid] 1 mg IV NOW STA
Ondansetron Injectable [Zofran] 4 mg IV NOW STA
CR Femur - Right Min 2 Vw Urgent
Comment:
Reason For Exam: trauma
CR Hip - RT w/wo Pel 2-3 Vw* Urgent
Comment:
Reason For Exam: fall trauma
Include a pelvis x-ray?: Yes
02/24/25 19:34
Add On- LAB Urgent
Tests Added?: alcohol
02/24/25 22:06
CT Pelvis W/o Iv Contrast Urgent
Comment:
Reason For Exam: hip ORIF 2 weeks ago, fall; xray neg' eval pelvis
02/24/25 23:20
HYDROmorphone [Dilaudid] 1 mg IV NOW STA
Abnormal Lab Results
02/24/25
18:25
RBC 3.79 L 10^6/uL
(4.70-6.10)
Hgb 12.7 L g/dL
(13.0-18.0)
Hct 37.1 L %
(39.0-52.0)
MCV 97.9 H fL
(80.0-94.0)
MCH 33.5 H pg
(27.0-31.0)
MPV 10.6 H fL
(7.4-10.4)
Abs Immat Gran (auto) 0.2 H 10^3/uL
(0-0.05)
Absolute Monos (auto) 1.3 H 10^3/uL
(0.1-0.6)
Immature Gran % 1.8 H %
(0-0.5)
Lymphocytes % 15.6 L %
(20.5-51.1)
Monocytes % 14.5 H %
(1.7-9.3)
Sodium 129 L mmol/L
(135-145)
Carbon Dioxide 19 L mmol/L
(22-30)
BUN 35 H mg/dl
(9-20)
Glucose 100 H mg/dl
(70-99)
02/24/25 18:25
02/24/25 18:25
Vital Signs
Initial and Last Documented VS:
Initial Vital Signs
Temp Pulse Resp BP Pulse Ox
36.4 C 46 15 144/68 99
02/24/25 17:55 02/24/25 17:55 02/24/25 17:55 02/24/25 17:55 02/24/25 17:55
Last Documented Vital Signs
Temp Pulse Resp BP Pulse Ox
36.4 C 56 23 162/70 99
02/24/25 17:55 02/24/25 22:15 02/24/25 22:15 02/24/25 22:05 02/24/25 19:38
<Joselyn Baugh PA-C - Last Filed: 02/25/25 01:11>
MDM/Problems Addressed
MDM/Problems Addressed:
Note:
CHIEF COMPLAINT(S)
Pain following hip surgery and fall.
HISTORY OF PRESENT ILLNESS
The patient 70 y/o a male, with a recent history of hip replacement surgery performed on 02/[address] [place] [address] crespo presents for pain and limited ROM after fall today.
The initial injury involved a fall that eventually led to a surgical intervention by Dr. Tate at [facility]. pt says he turned today and suddenly fell causing him to land on the hip.
The bruising in the knee area and additional bruising were noted since surgery.
he has no other injuries from the fall, denies thinners, no head strike
no numbness/tinglingin the foot
Patient admits that he did have a beer today but did not really eat and that he drinks daily. According to his records he has had bleeding esophageal varices, cirrhosis
PAST MEDICAL AND SURIGICAL HISTORY
The patient had hip replacement surgery approximately two weeks ago. A hemorrhage was noted in medical history back in 2009.
PHYSICAL EXAM
GENERAL: Alert , in no apparent distress
HEAD: NCAT
NECK: no midline tenderness, active ROM intact, no paraspinal muscle tenderness;
EYE: pupils equal and reactive, EOMs intact.
ENT: o/p clr, mmm. no hemotympanum
CARDIAC: Regular rate and rhythm, no edema
LUNGS: Clear breath sounds bilaterally, no acute respiratory distress, no wheezes/rales/rhonchi
ABDOMEN: Soft, without focal tenderness, no r/g, no cvat
NEUROLOGICAL: Alert and oriented, no focal neuro deficits, CN intact, 5/5 strength, sensation intact
SKIN: Warm and dry, bruising R knee and right lateral and posterior hip
incision intact, scab
MUSCULOSKELETAL: tender R hip with external rotation and shortening
knee is slightly flexed
severe pain with movement
normal DP pulse
PSYCH: Normal and appropriate interaction.
(Nursing notes reviewed and vital signs reviewed.)
PLAN
1. Obtain X-rays to assess for any fractures or dislocation.
2. Consider the possibility of referring to the original hospital, [facility], especially if the issue relates to recent surgery complications.
3. Consult orthopedic services, specifically [facility] doctors, for further evaluation and to determine the need for interventions, which may include relocating any dislocations onsite if feasible.
4. The patient should not eat or drink until the evaluation is complete.
DIFFERENTIAL DIAGNOSIS
The Differential Diagnosis includes, in no particular order and is not limited to:
1. Hip dislocation
2. Prosthetic joint infection
3. Acute fracture of the hip or femur
4. Prosthetic joint loosening
5. Hematoma formation near surgical site
6. Deep vein thrombosis
7. Hip bursitis
8. Postoperative infection
9. Nerve injury
10. Muscular strain around the surgical site
02/24/25 - 21:38
Patient does not have any fractures or dislocations, and everything appears fine upon examination. Although experiencing increased pain since the fall, it is manageable as long as there is no movement. The patient has fallen twice since surgery,
once today and once a few days ago. Current pain management with oxycodone at home. Movement of the hip remains difficult and painful, with the recommendation to use a walker consistently to aid mobility and prevent further falls. No need for
additional surgery or realignment
pt was unable to tolerate weight bearing
d/w addi sanchez
recommends CT
[address] shows fracture
unclear if this is his previous fx or new
pt cannot ambulate and will require admission
given rcent orthopedic surgery at [facility], will send him back there
d/w dr. delacruz from trauma at [facility] who accepted pt as level2
c collar in place for protocol
pt had no head strike, neck pain
eh does have some alcohol in system but is chronic alcoholic and a&o x 3
<Joselyn Baugh PA-C - Last Filed: 02/25/25 01:11>
*Pulse Oximetry
SaO2: 99
Oxygen Mode of Delivery: Room air
Patient hypoxic: no (99)
*Critical Care Note
Total Time (30-74mins, 75-104mins- exclusive of procedures): Not Applicable
ED Attending Note
<Joselyn Baugh PA-C - Last Filed: 02/25/25 01:11>
-
Portions of this chart may have been created with voice recognition software.� Occasional wrong word or��sound alike� substitutions may have occurred due to the inherent limitations of voice recognition software.
<Ella Sanchez DO - Last Filed: 02/25/25 01:09>
ED Attending Note
Patient seen and examined by attending physician: Yes
I performed the substantive portion of visit, reviewed & personally made and approve the management plan that is documented in note by myself or STEVE.: Yes
I performed a history and physical exam of patient and discussed management with resident, I reviewed resident's note and agree with documented findings and plan of care.: Yes
ED Attending Note:
70-year-old male with recent history of right-sided hip replacement 2 weeks ago at [facility] presenting to the emergency department for fall. Patient notes that he turned the wrong way, fell onto his right hip with subsequent pain and inability to
ambulate. Patient arrives with right hip pain, otherwise denies any head injury or additional injuries. Vital signs normal.
On exam, patient's incision is clean/dry/intact. No signs of erythema or warmth. Patient's hip appears to be slightly externally rotated, however is able to rotated inward, notes that this is a position of comfort. Immediate concern on physician
fast food sales assistant original assessment was for hip fracture versus dislocation. X-rays obtained which showed that the hardware was intact. However, patient unable to ambulate or bear weight. This prompted CT of the pelvis which shows concern for fracture
of the hip. Patient otherwise remains hemodynamically stable. No neurovascular compromise to the extremity. Due to recent surgery at [facility], case discussed with [facility] trauma and patient accepted for transfer. Patient stable for
transfer.
Discharge Plan
Departure
Patient Disposition: Acute Care Hospital
Date of Disposition: 02/25/25
Time of Disposition: 00:47
Discharge Problem:
Closed hip fracture
Prescriptions:
No Action
amlodipine 5 mg Tablet
5 mg PO DAILY
pravastatin 80 mg Tablet
80 mg PO HS
Co Q-10 300 mg Capsule
300 mg PO HS
propranolol 40 MG tablet
40 mg PO BID
lisinopril [Zestril] 40 mg tablet
40 mg PO DAILY
oobaybjfdxkv-yqcqvisq-totmld Tablet
1 tab PO DAILY PRN (Reason: supplement)
pantoprazole 40 mg Tablet,Delayed Release (Dr/Ec)
40 mg PO BID Qty: 60 0RF
magnesium oxide 500 mg magnesium Tablet
500 mg PO DAILY Qty: 0 0RF
folic acid 1 mg Tablet
1 mg PO DAILY Qty: 0 0RF
ciprofloxacin HCl [Cipro] 500 mg tablet
500 mg PO BID Qty: 10 0RF
lamotrigine 150 mg Tablet
150 mg PO BID Qty: 0 0RF
aspirin 81 mg Tablet,Delayed Release (Dr/Ec)
81 mg PO DAILY Qty: 0 0RF
omega 8-wue-rga-fish oil [Fish Oil] 1,000 mg (120 mg-180 mg) Capsule
1 cap PO DAILY Qty: 0 0RF
lactulose 20 gram/30 mL solution
30 g PO .2-3 TIMES PER WEEK Qty: 0 0RF
Patient Comments:
08/19/2023, prescribed BID but pt. takes 2-3 times per week.
Glucosamine Chondroitin
1 tab PO BID Qty: 0 0RF
Patient Comments:
08/19/2023, per pt., 1200 mg of Glucosamine and unsure of Chondroitin strength.
thiamine HCl (vitamin B1) 100 mg tablet
100 mg PO DAILY Qty: 14 0RF
Referrals:
Rasheeda Grubbs MD [Family Provider, [facility]]
Hospital Transfer
Other hospital: [facility]
I certify that the patient requires transfer: Yes
Discussed case with accepting physician: janeth delacruz
Reason for transfer: higher level of care and specialties available
Interventions
Interventions:
*Risk Screen - Suicide Last Done: 02/24/25 17:55
*General Assessment Last Done: 02/24/25 17:55
*Neglect/Abuse Screening Last Done: 02/24/25 17:55
*ED COVID-19 Vaccine History Last Done: 02/24/25 17:55
*ED Influenza Vaccine History Last Done: 02/24/25 17:55
ED-Musculoskeletal Assessment Last Done: 02/24/25 18:39
ED- Neurological Assessment Last Done: 02/24/25 18:39
ED-Skin Assessment Last Done: 02/24/25 18:39
Discharge Date and Time
Print Language: BULGARIAN
[2025-02-24 22:05] VITALS: BP 162/70
== END 2025-02-25 01:36 | disposition short-term general hospital (02) ==
LOC: EMR 17:53
PROVIDERS: Emergency Medicine; EMERGENCY PHYSICIAN Student in an Organized Health Care Education/Training Program; FAMILY PHYSICIAN Family Medicine
DX: S72.001A Fracture of unspecified part of neck of right femur, initial encounter for closed fracture (principal); K74.60 Unspecified cirrhosis of liver; I85.10 Secondary esophageal varices without bleeding; F10.20 Alcohol dependence, uncomplicated; Z79.82 Long term (current) use of aspirin; Z86.73 Personal history of transient ischemic attack (TIA), and cerebral infarction without residual deficits; Z96.643 Presence of artificial hip joint, bilateral; W18.39XA Other fall on same level, initial encounter
CPT/HCPCS: 99285; 96374; 96375; 96376; 72192; 73502; 73552; 80048; 82077; 85025

== ENCOUNTER → 2025-03-03 10:17 | Outpatient (REF) | payer OTHER, MEDICARE, SELFPAY ==
[2025-03-03 11:52] LABS: Hematocrit 28.6 % (39.0-52.0); Hemoglobin 9.7 g/dL (13.0-18.0); Mean Corp Hgb Conc. 33.9 g/dL (33.0-37.0); Mean Corpuscular Volume 98.6 fL (80.0-94.0); Nucleated Red Blood Cells % 0 % (-); Platelet Count 152 10^3/uL (130-400); Red Cell Dist. Width 12.8 % (11.5-14.5)
[2025-03-03 12:15] LABS: Blood Urea Nitrogen 35 mg/dl (9-20); Calcium 9.4 mg/dl (8.4-10.2); Carbon Dioxide 22 mmol/L (22-30); Chloride 109 mmol/L (98-107); Glucose 119 mg/dl (70-99); Potassium 4.9 mmol/L (3.5-5.1); Sodium 137 mmol/L (135-145); eGFR > 60.00
== END ==
LOC: OLABP 10:17
PROVIDERS: ATTENDING PHYSICIAN Family Medicine
DX: M97.01XD Periprosthetic fracture around internal prosthetic right hip joint, subsequent encounter (principal); E78.5 Hyperlipidemia, unspecified; F32.A Depression, unspecified; G40.89 Other seizures; I10 Essential (primary) hypertension; I85.00 Esophageal varices without bleeding; K21.9 Gastro-esophageal reflux disease without esophagitis; K27.9 Peptic ulcer, site unspecified, unspecified as acute or chronic, without hemorrhage or perforation; K74.60 Unspecified cirrhosis of liver; R01.1 Cardiac murmur, unspecified; Z86.73 Personal history of transient ischemic attack (TIA), and cerebral infarction without residual deficits; Z96.649 Presence of unspecified artificial hip joint
CPT/HCPCS: 36415; 80048; 85025

== ENCOUNTER → 2025-03-07 10:26 | Outpatient (REF) | payer OTHER, MEDICARE, SELFPAY ==
[2025-03-07 11:26] LABS: Hematocrit 32.2 % (39.0-52.0); Hemoglobin 10.5 g/dL (13.0-18.0); Mean Corp Hgb Conc. 32.6 g/dL (33.0-37.0); Mean Corpuscular Volume 101.3 fL (80.0-94.0); Platelet Count 162 10^3/uL (130-400); Red Cell Dist. Width 12.9 % (11.5-14.5)
== END ==
LOC: OLABP 10:26
PROVIDERS: ATTENDING PHYSICIAN Family Medicine
DX: M97.01XD Periprosthetic fracture around internal prosthetic right hip joint, subsequent encounter (principal); E78.5 Hyperlipidemia, unspecified; F32.A Depression, unspecified; G40.89 Other seizures; I10 Essential (primary) hypertension; I85.00 Esophageal varices without bleeding; K21.9 Gastro-esophageal reflux disease without esophagitis; K27.9 Peptic ulcer, site unspecified, unspecified as acute or chronic, without hemorrhage or perforation; K74.60 Unspecified cirrhosis of liver; R01.1 Cardiac murmur, unspecified; Z86.73 Personal history of transient ischemic attack (TIA), and cerebral infarction without residual deficits; Z96.649 Presence of unspecified artificial hip joint
CPT/HCPCS: 36415; 85027

== ENCOUNTER → 2025-03-09 11:13 | Outpatient (REF) | payer OTHER, MEDICARE, SELFPAY ==
[2025-03-09 12:56] LABS: Ammonia 43 umol/L (9-30)
== END ==
LOC: OLABP 11:13
PROVIDERS: ATTENDING PHYSICIAN Family Medicine
DX: E78.5 Hyperlipidemia, unspecified (principal); F32.A Depression, unspecified; G40.89 Other seizures; I10 Essential (primary) hypertension; I85.00 Esophageal varices without bleeding; K21.9 Gastro-esophageal reflux disease without esophagitis; K27.9 Peptic ulcer, site unspecified, unspecified as acute or chronic, without hemorrhage or perforation; K74.60 Unspecified cirrhosis of liver; R01.1 Cardiac murmur, unspecified; Z96.649 Presence of unspecified artificial hip joint
CPT/HCPCS: 36415; 82140

== ENCOUNTER → 2025-03-14 09:33 | Outpatient (REF) | payer OTHER, MEDICARE, SELFPAY ==
[2025-03-14 12:07] LABS: Ammonia 36 umol/L (9-30)
== END ==
LOC: OLABP 09:33
PROVIDERS: ATTENDING PHYSICIAN Family Medicine
DX: M97.01XD Periprosthetic fracture around internal prosthetic right hip joint, subsequent encounter (principal); E78.5 Hyperlipidemia, unspecified; F32.A Depression, unspecified; G40.89 Other seizures; I10 Essential (primary) hypertension; I85.00 Esophageal varices without bleeding; K21.9 Gastro-esophageal reflux disease without esophagitis; K27.9 Peptic ulcer, site unspecified, unspecified as acute or chronic, without hemorrhage or perforation; K74.60 Unspecified cirrhosis of liver; R01.1 Cardiac murmur, unspecified; Z86.73 Personal history of transient ischemic attack (TIA), and cerebral infarction without residual deficits; Z96.649 Presence of unspecified artificial hip joint
CPT/HCPCS: 36415; 82140

== ENCOUNTER 2025-05-12 16:53 | Emergency (ER) | payer MEDICARE, SELFPAY ==
[2025-05-12 17:12] VITALS: BP 129/69
[2025-05-12 17:33] LABS: Hematocrit 32.2 % (39.0-52.0); Hemoglobin 10.1 g/dL (13.0-18.0); Mean Corp Hgb Conc. 31.4 g/dL (33.0-37.0); Mean Corpuscular Volume 97.6 fL (80.0-94.0); Nucleated Red Blood Cells % 0 % (-); Platelet Count 179 10^3/uL (130-400); Red Cell Dist. Width 17.1 % (11.5-14.5)
[2025-05-12 17:43] LABS: Ammonia 19 umol/L (9-30)
[2025-05-12 17:45] LABS: ALT (SGPT) 11 U/L (0-50); AST (SGOT) 33 U/L (17-59); Albumin 2.9 g/dl (3.5-5.0); Alkaline Phosphatase 198 U/L (38-126); Blood Urea Nitrogen 14 mg/dl (9-20); Calcium 8.7 mg/dl (8.4-10.2); Carbon Dioxide 23 mmol/L (22-30); Chloride 103 mmol/L (98-107); Glucose 110 mg/dl (70-99); Potassium 4.7 mmol/L (3.5-5.1); Sodium 132 mmol/L (135-145); Total Protein 6.8 g/dl (6.3-8.2); eGFR > 60.00
--- NOTE | 2025-05-12 19:51 | ED.GENMED ---
History of Present Illness
General
Chief Complaint: Abnormal Lab Value
Source: patient, records and halfway records
Exam Limitations: none
Time Seen by Provider: 05/12/25 19:14
Nursing documentation reviewed up to this point in time: agreed with
History of Present Illness
History of Present Illness:
70-year-old male referred to the ER via EMS by 911 due to ammonia level of 82
His chronic liver disease, he resides at a halfway, some chronic antibiotics due to infected hip states he did have some dark urine a few days ago
Here he is awake alert and oriented, no acute distress states his blood work was drawn a few days ago he wonders if it was not placed on ice correctly
Past History
Past History
ED Past Medical History: CVA (Cerebral hemorrhage with stroke.), Valvular disease and Other (History of thrombocytopenia, history of GI bleeding)
ED Past Surgical History: Cardiac and Other (Noncontributory)
Social History
Tobacco: Non-smoker
Alcohol: None
Drug: None
Personal:
Living: halfway
Employment: Employed
Family History
Family History: Other (Noncontributory)
Review of Systems
Review of Systems
All Other Systems: Not applicable
Constitutional: Denies fever or fatigue
Respiratory: Reports no symptoms
Cardiac: Reports no symptoms
ABD/GI: Reports diarrhea (Due to his lactulose)
: Reports dark urine
Neurological: Reports no symptoms
Endocrine: Reports no symptoms
Phy Exam
Physical Exam
Physical Exam:
Physical Exam
General: no apparent distress, not acutely ill
Neck: No jaundice
Heart: s1/s2 regular rate and rhythm, no murmur. equal radial pulses.
Lungs: no acute respiratory distress.
Abdomen: Nontender
Neuro: alert and oriented. No asterixis no flap he knows he is at the hospital thinks his 2022 quickly corrects to 2024
Skin: no rash
Psychiatric: cooperative
Extremities: No cyanosis
Course
Orders/Labs/Results
Orders:
Orders
05/12/25 17:20
Ammonia Urgent
Complete Blood Count/With Diff Urgent
Comprehensive Metabolic Panel Urgent
05/12/25 20:13
Urinalysis Reflex To Culture Urgent
Date Specimen was Collected: 05/12/25
Time Specimen was Collected: 20:11
Urine Microscopic Reflex Cult Urgent
Urine Culture Urgent
ANDREI Source: U
Specimen Description:
Date Specimen was Collected: 05/12/25
Time Specimen was Collected: 20:11
Abnormal Lab Results
05/12/25 05/12/25
17:20 20:13
RBC 3.30 L 10^6/uL
(4.70-6.10)
Hgb 10.1 L g/dL
(13.0-18.0)
Hct 32.2 L %
(39.0-52.0)
MCV 97.6 H fL
(80.0-94.0)
MCHC 31.4 L g/dL
(33.0-37.0)
RDW 17.1 H %
(11.5-14.5)
MPV 11.0 H fL
(7.4-10.4)
Absolute Monos (auto) 1.1 H 10^3/uL
(0.1-0.6)
Monocytes % 15.0 H %
(1.7-9.3)
Sodium 132 L mmol/L
(135-145)
Glucose 110 H mg/dl
(70-99)
Alkaline Phosphatase 198 H U/L
(38-126)
Albumin 2.9 L g/dl
(3.5-5.0)
Urine Ketones 1+ A
(Negative)
Urine Nitrite (Reflex) Positive A
(Negative)
Urine Bilirubin 1+ A
(Negative)
Leukocyte Esterase Rfl 2+ A
(Negative)
Urine Bacteria (Reflex) Moderate A
(Negative)
Urine Albumin (Reflex) 3+ A
(Neg - Trace)
05/12/25 17:20
05/12/25 17:20
Vital Signs
Initial and Last Documented VS:
Initial Vital Signs
Temp Pulse Resp BP Pulse Ox
99.1 F 70 16 129/69 98
05/12/25 17:12 05/12/25 17:12 05/12/25 17:12 05/12/25 17:12 05/12/25 17:12
Last Documented Vital Signs
Temp Pulse Resp BP Pulse Ox
99.1 F 72 22 129/69 98
05/12/25 17:12 05/12/25 19:45 05/12/25 19:45 05/12/25 17:12 05/12/25 19:54
MDM/Problems Addressed
Differential Diagnosis Includes:
Lab error UTI transient elevation with improvement
MDM/Problems Addressed:
Elevated lactulose now normal lactic
Chronic conditions affecting care:
Chronic liver disease hypertension
Acute Exacerbation and/or Progression of Chronic Illness:
Chronic liver disease hypertension
*Pulse Oximetry
SaO2: 98
Oxygen Mode of Delivery: Room air
Patient hypoxic: no
*Critical Care Note
Total Time (30-74mins, 75-104mins- exclusive of procedures): Not Applicable
Update Note
Update Note:
Labs noted patient looks well well no clinical signs of hepatic encephalopathy,
Will check urine if he is able to provide though he is on chronic antibiotics
ED Attending Note
-
Portions of this chart may have been created with voice recognition software.� Occasional wrong word or��sound alike� substitutions may have occurred due to the inherent limitations of voice recognition software.
Discharge Plan
Departure
Patient Disposition: Home (Routine Discharge)
Date of Disposition: 05/12/25
Time of Disposition: 20:51
Patient with high blood pressure during this ER visit?: No
Condition: Good
Discharge Problem:
Alcoholic cirrhosis
Instructions: Cirrhosis, Ammonia Blood Test
Prescriptions:
No Action
amlodipine 5 mg Tablet
5 mg PO DAILY
pravastatin 80 mg Tablet
80 mg PO HS
Co Q-10 300 mg Capsule
300 mg PO HS
propranolol 40 MG tablet
40 mg PO BID
lisinopril [Zestril] 40 mg tablet
40 mg PO DAILY
[id number]-lvgoqszg-zggkjy Tablet
1 tab PO DAILY PRN (Reason: supplement)
pantoprazole 40 mg Tablet,Delayed Release (Dr/Ec)
40 mg PO BID Qty: 60 0RF
magnesium oxide 500 mg magnesium Tablet
500 mg PO DAILY Qty: 0 0RF
folic acid 1 mg Tablet
1 mg PO DAILY Qty: 0 0RF
ciprofloxacin HCl [Cipro] 500 mg tablet
500 mg PO BID Qty: 10 0RF
lamotrigine 150 mg Tablet
150 mg PO BID Qty: 0 0RF
aspirin 81 mg Tablet,Delayed Release (Dr/Ec)
81 mg PO DAILY Qty: 0 0RF
omega [id number] oil [Fish Oil] 1,000 mg (120 mg-180 mg) Capsule
1 cap PO DAILY Qty: 0 0RF
lactulose 20 gram/30 mL solution
30 g PO .2-3 TIMES PER WEEK Qty: 0 0RF
Patient Comments:
08/19/2023, prescribed BID but pt. takes 2-3 times per week.
Glucosamine Chondroitin
1 tab PO BID Qty: 0 0RF
Patient Comments:
08/19/2023, per pt., 1200 mg of Glucosamine and unsure of Chondroitin strength.
thiamine HCl (vitamin B1) 100 mg tablet
100 mg PO DAILY Qty: 14 0RF
Referrals:
Rasheeda Grubbs MD [Family Provider, Family Practice] - Next open appointment
Activity Restrictions/Additional Instructions:
Continue medications as prescribed
Interventions
Interventions:
*General Assessment Last Done: 05/12/25 17:12
*Neglect/Abuse Screening Last Done: 05/12/25 20:25
*ED COVID-19 Vaccine History Last Done: 05/12/25 20:25
*ED Influenza Vaccine History Last Done: 05/12/25 20:25
[facility] Risk Assessment Tool Last Done: 05/12/25 20:22
*Risk Screen - Suicide (C-SSRS) Last Done: 05/12/25 17:12
Discharge Date and Time
Print Language: [id number]
[2025-05-12 20:38] LABS: Urine Character Clear (Clear)
[2025-05-12 20:46] LABS: Urine Red Blood Cell 0-2 /HPF (0-2)
== END 2025-05-13 00:34 | disposition home or self-care (01) ==
LOC: EMR 16:53
PROVIDERS: Emergency Medicine; EMERGENCY PHYSICIAN Emergency Medicine; FAMILY PHYSICIAN Family Medicine
DX: K70.30 Alcoholic cirrhosis of liver without ascites (principal); I10 Essential (primary) hypertension; Z86.73 Personal history of transient ischemic attack (TIA), and cerebral infarction without residual deficits; Z79.2 Long term (current) use of antibiotics
CPT/HCPCS: 99283; 80053; 81003; 81015; 82140; 85025; 87086